=== PATIENT | female | born 1950 | race Caucasian/White ===

== ENCOUNTER 2018-06-30 21:14 | Inpatient (IN) | payer MEDICAID ==
[~2018-06-30] VITALS: Ht 157.5 cm; Wt 77.4 kg
[~2018-06-30 21:14] MED LIST: ASPI-831 PO; LISI-524 PO; METF-849 PO
[2018-06-30] MEDS ORDERED: ACETAMINOPHEN 325 MG TAB PO STA (21:26)
[2018-06-30] MEDS ORDERED: KETOROLAC 15 MG INJ IV STA (21:26)
[2018-06-30] MEDS ORDERED: SODIUM CHLORIDE 0.9% 1L BAG IV* STA (21:26)
[2018-06-30] MEDS ORDERED: VANCOMYCIN 1 GM (PMX) 250 ML IVPB ONE (21:30)
[2018-06-30] MEDS: CEFEPIME 2GM/50 ML (PMX) 50 ML IVPB STA ×2 (21:44→21:46)
[2018-06-30] MEDS ORDERED: ONDANSETRON 4 MG INJ IV PRN (23:00)
[2018-06-30] MEDS ORDERED: ACETAMINOPHEN 325 MG TAB PO PRN (23:00)
--- NOTE | 2018-06-30 23:32 | HP ---
Date/Time of Note Date/Time of Note DATE: 06/30/18 TIME: 23:32 Assessment/Plan VTE Prophylaxis Pharmacological prophylaxis: heparin Lines/Catheters IV Catheter Type (from Nrsg): Saline Lock Assessment/Plan Assessment/Plan 1. Sepsis: Secondary to UTI and possibly early pneumonia -Broad-spectrum IV antibiotic -Influenza negative. Follow-up culture results -Cautious with IV fluids given possible pulmonary edema on chest x-ray 2. Hypertension: Continue meds. Adjust as needed 3. Diabetes: Insulin while in-house 4. Right shoulder pain: Patient mentioned about arthritis. She has full range of motion and there is no obvious deformity -Pain management for now -Consider imaging per clinical course low suspicion for nerve impingement Result Diagram: 06/30/18213406/30/182134 Results 24hrs Laboratory Tests Test 06/30/18 21:35 06/30/18 21:41 06/30/18 22:27 White Blood Count 10.0 # Red Blood Count 3.37 L Hemoglobin 10.3 L Hematocrit 30.6 L Mean Corpuscular Volume 90.8 Mean Corpuscular Hemoglobin 30.6 Mean Corpuscular Hemoglobin Concent 33.7 Red Cell Distribution Width 12.7 Platelet Count 212 Mean Platelet Volume 10.5 H Immature Granulocytes % 0.500 H Neutrophils % 89.2 H Lymphocytes % 5.7 L Monocytes % 4.1 Eosinophils % 0.1 Basophils % 0.4 Nucleated Red Blood Cells % 0.0 Immature Granulocytes # 0.050 H Neutrophils # 8.9 H Lymphocytes # 0.6 L Monocytes # 0.4 Eosinophils # 0.0 Basophils # 0.0 Nucleated Red Blood Cells # 0.0 Prothrombin Time 12.9 Prothrombin Time Ratio 1.0 INR International Normalized Ratio 0.96 Activated Partial Thromboplast Time 34.0 Sodium Level 136 Potassium Level 3.8 Chloride Level 101 Carbon Dioxide Level 24 Anion Gap 11 Blood Urea Nitrogen 15 Creatinine 0.62 Est Glomerular Filtrat Rate mL/min > 60 Glucose Level 189 Calcium Level 9.0 Total Bilirubin 0.4 Direct Bilirubin 0.00 Indirect Bilirubin 0.4 Aspartate Amino Transf (AST/SGOT) 19 Alanine Aminotransferase (ALT/SGPT) 17 Alkaline Phosphatase 127 H Troponin I < 0.012 Total Protein 7.7 Albumin 3.9 Globulin 3.80 H Albumin/Globulin Ratio 1.02 POC Venous Lactate 1.4 Urine Color YELLOW Urine Clarity CLOUDY A Urine pH 5.0 Urine Specific [place] 1.015 Urine Ketones NEGATIVE Urine Nitrite NEGATIVE Urine Bilirubin NEGATIVE Urine Urobilinogen NEGATIVE Urine Leukocyte Esterase 3+ H Urine Microscopic RBC 6 H Urine Microscopic WBC > 182 H Urine Squamous Epithelial Cells FEW Urine Transitional Epithelial Cells FEW A Urine Bacteria FEW A Urine Hemoglobin 2+ H Urine Glucose NEGATIVE Urine Total Protein 2+ H HPI/ROS Admit Date/Time Admit Date/Time Hx of Present Illness This is a 68-year-old female with a history of hypertension and type 2 diabetes who presented to ER complaining of fever/chills and right shoulder pain. Reported minimal cough and shortness of breath. Denied chest pain. Reported urinary symptoms. No diarrhea. Patient is more bothered by fever and chills. Patient was just discharged from here 2 weeks ago after she initially presented with orthopnea and PND. At that time she was ruled out for ACS and stress test was also negative. When presented to ER, patient was febrile with a temperature of 105. UA consistent with UTI. Chest x-ray suspicious for early pneumonia. Influenza negative PMH/Family/Social Past Medical History Medical History: other (See HPI) Medications Current Medications Ondansetron HCl (Zofran Inj) 4 mg BRIDGE ORDER PRN IV NAUSEA/VOMITING; Start 06/30/18 at 23:00; Stop 07/01/18 at 22:59 Acetaminophen (Tylenol Tab) 650 mg ER BRIDGE PRN PO .MILD PAIN 1-3 OR TEMP; Start 06/30/18 at 23:00; Stop 07/01/18 at 22:59 Coded Allergies: No Known Allergy (Unverified , 07/01/18) Past Surgical History Past Surgical Hx: other (See HPI) Family History Significant Family History: no pertinent family hx Social History Alcohol Use: none Smoking Status: Never smoker Drug Use: none Exam/Review of Systems Vital Signs Vitals Vital Signs Date Temp Pulse Resp B/P (MAP) Pulse Ox O2 O2 Flow FiO2 Time Delivery Rate 06/30/18 103.0 21:43 06/30/18 20 154/57 100 Room Air 21:25 (89) 06/30/18 90 21:18 Exam Constitutional: other (Patient lying in bed. She looks uncomfortable because of fever and chills. She is answering questions appropriately) Head: normocephalic, atraumatic Eyes: EOMI, PERRL Respiratory: other (Decreased breath sounds at the bases bilaterally) Cardiovascular: other (Tachycardic with regular rhythm) Gastrointestinal: soft Musculoskeletal: other (Pain was elicited on palpation the right shoulder area. No obvious deformity. She has full range of motion) Extremities: normal pulses SURESH HEADLEY MD Jun 30, 2018 23:32
--- NOTE | 2018-06-30 23:33 | ERD ---
ER Documentation Chief Complaint Chief Complaint FEVER AND INTERMITTENT COUGH FOR A FEW DAYS AND GEN BODY PAIN AND WEAK HPI This a 68-year-old female who presents the emergency room with approximately 2-3 days of fever cough congestion and back pain. Patient is noted to have a significant fever at triage. She denies any headache or rash or neck stiffness. Patient's cough is slightly productive. No dysuria urgency or frequency. The patient does describe generalized body pain and weakness. ROS All systems reviewed and are negative except as per history of present illness. Medications Home Meds Active Scripts Aspirin (Aspirin) 81 Mg Chew, 81 MG PO DAILY for 30 Days, TAB.CHEW 2 Refills Prov:KARANDELMARATITO M. 06/14/15 Metformin* (Glucophage*) 500 Mg Tab, 500 MG PO WITH BREAKFAST, #30 TAB 2 Refills Prov:KARAN,DELMARATITO M. 06/14/15 Lisinopril* (Zestril*) 10 Mg Tab, 10 MG PO DAILY for 30 Days, TAB 2 Refills Prov:KARANVIRGIEO M. 06/14/15 Allergies Allergies: Coded Allergies: No Known Allergy (Unverified , 06/12/15) PMhx/Soc History of Surgery: No Anesthesia Reaction: No Hx Neurological Disorder: No Hx Respiratory Disorders: No Hx Cardiac Disorders: Yes (HYPERTENSION) Hx Psychiatric Problems: No Hx Miscellaneous Medical Probl: No Hx Alcohol Use: No Hx Substance Use: No Hx Tobacco Use: No Smoking Status: Never smoker FmHx Family History: No diabetes Physical Exam Vitals Vital Signs Date Temp Pulse Resp B/P (MAP) Pulse Ox O2 O2 Flow FiO2 Time Delivery Rate 06/30/18 103.0 21:43 06/30/18 103.0 20 154/57 100 Room Air 21:25 (89) 06/30/18 105.1 90 22 164/92 94 21:18 (116) Physical Exam General: Well developed, well nourished, no acute distress Head: Normocephalic, atraumatic. Eyes: Pupils equally reactive, EOM intact ENT: Moist mucous membranes Neck: Supple, no lymphadenopathy Respiratory: Rhonchi at the bases bilaterally, no respiratory distress Cardiovascular: Tachycardia, no murmurs, rubs, or gallops Abdominal: Soft, non-tender, non-distended, no peritoneal signs : Deferred MSK: No edema, no unilateral swelling, 5/5 strength Neurologic: Alert and oriented, moving all extremities, normal speech, no focal weakness, no cerebellar signs Skin: No rash Psych: Normal mood Result Diagram: 06/30/18213406/30/182134 Results 24 hrs Laboratory Tests Test 06/30/18 21:35 06/30/18 21:41 06/30/18 22:27 White Blood Count 10.0 10^3/ul Red Blood Count 3.37 10^6/ul Hemoglobin 10.3 g/dl Hematocrit 30.6 % Mean Corpuscular Volume 90.8 fl Mean Corpuscular Hemoglobin 30.6 pg Mean Corpuscular 33.7 g/dl Hemoglobin Concent Red Cell Distribution Width 12.7 % Platelet Count 212 10^3/UL Mean Platelet Volume 10.5 fl Immature Granulocytes % 0.500 % Neutrophils % 89.2 % Lymphocytes % 5.7 % Monocytes % 4.1 % Eosinophils % 0.1 % Basophils % 0.4 % Nucleated Red Blood Cells % 0.0 /100WBC Immature Granulocytes # 0.050 10^3/ul Neutrophils # 8.9 10^3/ul Lymphocytes # 0.6 10^3/ul Monocytes # 0.4 10^3/ul Eosinophils # 0.0 10^3/ul Basophils # 0.0 10^3/ul Nucleated Red Blood Cells # 0.0 10^3/ul Prothrombin Time 12.9 Sec Prothrombin Time Ratio 1.0 INR International 0.96 Normalized Ratio Activated Partial Thromboplast 34.0 Sec Time Sodium Level 136 mmol/L Potassium Level 3.8 mmol/L Chloride Level 101 mmol/L Carbon Dioxide Level 24 mmol/L Anion Gap 11 Blood Urea Nitrogen 15 mg/dl Creatinine 0.62 mg/dl Est Glomerular Filtrat > 60 mL/min Rate mL/min Glucose Level 189 mg/dl Calcium Level 9.0 mg/dl Total Bilirubin 0.4 mg/dl Direct Bilirubin 0.00 mg/dl Indirect Bilirubin 0.4 mg/dl Aspartate Amino 19 IU/L Transf (AST/SGOT) Alanine 17 IU/L Aminotransferase (ALT/SGPT) Alkaline Phosphatase 127 IU/L Troponin I < 0.012 ng/ml Total Protein 7.7 g/dl Albumin 3.9 g/dl Globulin 3.80 g/dl Albumin/Globulin Ratio 1.02 POC Venous Lactate 1.4 mmol/L Urine Color YELLOW Urine Clarity CLOUDY Urine pH 5.0 Urine Specific [place] 1.015 Urine Ketones NEGATIVE mg/dL Urine Nitrite NEGATIVE mg/dL Urine Bilirubin NEGATIVE mg/dL Urine Urobilinogen NEGATIVE mg/dL Urine Leukocyte Esterase 3+ Ana/ul Urine Microscopic RBC 6 /HPF Urine Microscopic WBC > 182 /HPF Urine Squamous Epithelial Cells FEW /HPF Urine Transitional FEW /HPF Epithelial Cells Urine Bacteria FEW /HPF Urine Hemoglobin 2+ mg/dL Urine Glucose NEGATIVE mg/dL Urine Total Protein 2+ mg/dl Current Medications Medications Dose Sig/Viviana Start Time Status Last (Trade) Ordered Route PRN Stop Time Admin Dose Reason Admin Sodium 2,160 ml BOLUS OVER 2 06/30/18 DC 06/30/18 Chloride HOURS STAT 21: 21:44 (NS) IV* 06/30/18 21:28 650 mg ONCE STAT 06/30/18 DC 06/30/18 Acetaminophen PO 21:26 21:43 (Tylenol 06/30/18 21:28 Tab) Cefepime HCl 50 ml @ ONCE STAT 06/30/18 DC 06/30/18 100 mls/hr IVPB 21:26 21:46 06/30/18 21:55 Vancomycin 250 ml @ ONCE ONCE 06/30/18 DC 06/30/18 HCl 125 mls/hr IVPB 21:30 22:11 06/30/18 23:29 Ketorolac 15 mg ONCE STAT 06/30/18 DC 06/30/18 Tromethamine IV 21:26 21:42 (Toradol) 06/30/18 21:28 Ondansetron 4 mg BRIDGE ORDER 06/30/18 HCl (Zofran PRN IV 23:00 Inj) NAUSEA/VOMITI 07/01/18 22:59 NG 650 mg ER BRIDGE 06/30/18 Acetaminophen PRN PO 23:00 (Tylenol .MILD PAIN 07/01/18 22:59 Tab) 1-3 OR TEMP Procedures/MDM EKG, MONITORS, & DIAGNOSTIC IMAGING: EKG: I reviewed and interpreted a 12-lead EKG. Rhythm: Normal sinus rhythm ST Changes: No contiguous ST segment elevations T waves: No contiguous T wave inversions Impression: No evidence of acute cardiac ischemia Chest x-ray: I reviewed and interpreted a 1 view of the chest Mediastinum: No enlargement Cardiac silhouette: No cardiomegaly Airspace: Possible right-sided infiltrate Bones: No evidence of fracture LAB INTERPRETATION: I reviewed the laboratory testing and it shows normal lactic acid, normal white count with left shift, UTI, normal lactic acid, negative troponin MEDICAL DECISION MAKING: Patient has Sirs criteria with significant fever, cough congestion concerning for community acquired pneumonia. Patient is sepsis screening and broad-spe ctrum antibiotics. Given patient's age inpatient hospitalization is most likely appropriate. ER COURSE: * Laboratory testing and diagnostic imaging confirmed possible community acquired pneumonia versus urinary tract infection and potentially pyelonephritis. * 30/kg bolus of saline provided. Antipyretics provided. Blood cultures prior to broad-spectrum antibiotics. * Patient's lactic acid and hemodynamics are reassuring. No indication for central line or pressors. CONSULTATION: None DISPOSITION PLAN: Accepting care team and consultations: I discussed the current laboratory data, diagnostic imaging and emergency care provided. Admitting team: Dr. Winter Admitting team indication: Insurance directed Sepsis Documentation: Patient's infectious symptoms have not stabilized and the patient is at risk of rapid decompensation. The patient will be admitted for careful hydration, antibiotic therapy, and infectious source control. SEVERE SEPSIS CRITERIA: Infectious source: Community-acquired pneumonia, urinary tract infection End organ damage indicated by: No evidence at this time SEPSIS MANAGEMENT Time of recognition of sepsis: Upon MD assessment. Time of recognition of severe sepsis: No severe sepsis at this time. Time of recognition of septic shock: No septic shock at this time. 3 HOUR BUNDLE Blood cultures x 2 before broad-spectrum antibiotics: Yes 30 ml/kg NS bolus completed Initial lactate less than 2 Repeat lactate less than 2 SEPTIC SHOCK ASSESSMENT: No lactic acid > 4.0 No persistent hypotension (SBP < 90 or 40 mmHg drop, MAP < 65) despite 30 mL/kg IV fluid bolus VOLUME REASSESSMENT FOR SEPTIC SHOCK: The patient does not meet criteria for septic shock in the emergency department at this time PERSISTENT HYPOTENSION TREATMENT: Comfort care no Central line not Required Vasopressor started not required I considered further perfusion assessment with CVP measurement, SCVO2, bedside ultrasound volume assessment, passive leg raise, trial of further fluid bolus. And proceeded with 30 ml/kg fluid bolus of NSS, broad spectrum antibiotics, and admission. CRITICAL CARE Critical care time 35 minutes Emergent fluid management while maintaining close respiratory support. Provision of immediate and broad-spectrum antibiotic therapy. Simultaneous asse ssment for possible sources in order to direct targeted therapy. Consideration for invasive and chemical support to prevent cardiopulmonary collapse. Critical care time is independent of procedures performed. Departure Diagnosis: Primary Impression: Community acquired pneumonia Laterality: right Lung location: lower lobe of lung Qualified Codes: J18.1 - Lobar pneumonia, unspecified organism Additional Impressions: Acute pyelonephritis Sepsis Sepsis type: sepsis due to unspecified organism Qualified Codes: A41.9 - Sepsis, unspecified organism Condition: Stable JUAN MIGUEL CASTANON MD Jun 30, 2018 23:33
[2018-07-01] VITALS (11 sets, daily range): BP systolic 105–139; BP diastolic 42–73; PULSE 63–85; RESP 18–20; Ht 157.5 cm; Wt 77.4 kg
[2018-07-01] MEDS ORDERED: ACET-141 PO (02:42)
[2018-07-01] MEDS ORDERED: ALBUTEROL/IPRATROPIUM (NEB) 3 ML AMP HHN PRN (05:00)
[2018-07-01] MEDS ORDERED: ONDANSETRON 4 MG INJ IV PRN (05:00)
[2018-07-01] MEDS ORDERED: NACL 0.9% 3 ML SYG IV SCH (05:00)
[2018-07-01] MEDS ORDERED: metFORMIN 500 MG TAB PO SCH (07:55)
[2018-07-01] MEDS: ASPIRIN 81 MG TAB PO SCH (08:09)
[2018-07-01] MEDS: LISINOPRIL 10 MG TAB PO SCH (08:10)
[2018-07-01] MEDS: ENOXAPARIN 40 MG/0.4 ML SYG SC SCH (08:19)
[2018-07-01] MEDS ORDERED: LEVOFLOXACIN 500MG/D5W (PMX) 100 ML IVPB SCH (09:00)
[2018-07-01] MEDS ORDERED: VANCOMYCIN IV PER PHARMACY XX SCH (10:00)
[2018-07-01] MEDS: SOD CHLORIDE 0.9% 1,000 ML IV SCH ×2 (11:03→17:31)
[2018-07-01] MEDS: PIPER-TAZO 3.375 GM IV (PMX) 100 ML IVPB SCH ×2 (11:03→17:30)
--- NOTE | 2018-07-01 11:22 | PN ---
Date/Time of Note Date/Time of Note DATE: 07/01/18 TIME: 11:14 Assessment/Plan VTE Prophylaxis Risk score (from Ns)>0 risk: 3 SCD applied (from Ns): No SCD contraindicated: other Pharmacological prophylaxis: LMWH Lines/Catheters IV [facility]ter [facility]from [facility] Saline Lock Assessment/Plan Hospital Course S: Patient had no fevers overnight. Still having some weakness symptoms overall. Appears to be tolerating diet. O: VS - see below PE: Constitutional: lying in bed, family member bedside, no acute distress Head: normocephalic, atraumatic Eyes: EOMI, PERRL Respiratory: other (Decreased breath sounds at the bases bilaterally) Cardiovascular: other (Tachycardic with regular rhythm) Gastrointestinal: soft Musculoskeletal: still having some mild right shoulder pain Extremities: normal pulses Assessment/Plan: 68-year-old female who presents with: 1. Sepsis: Secondary to UTI and possibly early pneumonia. As well, 2 out of 2 blood culture bottles have gram-negative berto growth-Influenza negative. -Continue broad-spectrum IV antibiotics and get ID consult - Follow-up culture results -Cautious with IV fluids given possible pulmonary edema on chest x-ray 2. Hypertension: Blood pressure stable - continue meds. Adjust as needed 3. Diabetes: Sugars are stable -Follow-up A1c, continue sliding scale insulin while in-house -Holding home metformin for now 4. Right shoulder pain: Patient mentioned about arthritis. She has full range of motion and there is no obvious deformity -Pain management for now, but will go ahead and check x-ray -Get PT and OT eval's Result Diagram: 07/01/18 0724 07/01/18 0724 Results 24hrs Laboratory Tests Test 06/30/18 21:35 06/30/18 21:41 06/30/18 22:27 06/30/18 23:31 White Blood Count 10.0 # Red Blood Count 3.37 L Hemoglobin 10.3 L Hematocrit 30.6 L Mean Corpuscular 90.8 Volume Mean Corpuscular 30.6 Hemoglobin Mean Corpuscular 33.7 Hemoglobin Concent Red Cell 12.7 Distribution Width Platelet Count 212 Mean Platelet Volume 10.5 H Immature 0.500 H Granulocytes % Neutrophils % 89.2 H Lymphocytes % 5.7 L Monocytes % 4.1 Eosinophils % 0.1 Basophils % 0.4 Nucleated Red Blood 0.0 Cells % Immature 0.050 H Granulocytes # Neutrophils # 8.9 H Lymphocytes # 0.6 L Monocytes # 0.4 Eosinophils # 0.0 Basophils # 0.0 Nucleated Red Blood 0.0 Cells # Prothrombin Time 12.9 Prothrombin Time 1.0 Ratio INR International 0.96 Normalized Ratio Activated 34.0 Partial Thromboplast Time Sodium Level 136 Potassium Level 3.8 Chloride Level 101 Carbon Dioxide Level 24 Anion Gap 11 Blood Urea Nitrogen 15 Creatinine 0.62 Est Glomerular > 60 Filtrat Rate mL/min Glucose Level 189 Calcium Level 9.0 Total Bilirubin 0.4 Direct Bilirubin 0.00 Indirect Bilirubin 0.4 Aspartate Amino 19 Transf (AST/SGOT) Alanine 17 Aminotransferase (AL T/SGPT) Alkaline Phosphatase 127 H Troponin I < 0.012 Total Protein 7.7 Albumin 3.9 Globulin 3.80 H Albumin/Globulin 1.02 Ratio POC Venous Lactate 1.4 Urine Color YELLOW Urine Clarity CLOUDY A Urine pH 5.0 Urine Specific 1.015 [place] Urine Ketones NEGATIVE Urine Nitrite NEGATIVE Urine Bilirubin NEGATIVE Urine Urobilinogen NEGATIVE Urine Leukocyte 3+ H Esterase Urine Microscopic 6 H RBC Urine Microscopic > 182 H WBC Urine Squamous FEW Epithelial Cells Urine Transitional FEW A Epithelial Cells Urine Bacteria FEW A Urine Hemoglobin 2+ H Urine Glucose NEGATIVE Urine Total Protein 2+ H Lactic Acid Level 0.8 Test 07/01/18 01:41 07/01/18 07:24 07/01/18 08:05 Lactic Acid Level 0.8 White Blood Count 10.2 Red Blood Count 3.54 L Hemoglobin 10.5 L Hematocrit 33.1 L Mean Corpuscular 93.5 Volume Mean Corpuscular 29.7 Hemoglobin Mean Corpuscular 31.7 L Hemoglobin Concent Red Cell 13.0 Distribution Width Platelet Count 202 Mean Platelet Volume 10.8 H Immature 0.600 H Granulocytes % Neutrophils % 85.9 H Lymphocytes % 8.4 L Monocytes % 4.5 Eosinophils % 0.2 Basophils % 0.4 Nucleated Red Blood 0.0 Cells % Immature 0.060 H Granulocytes # Neutrophils # 8.7 H Lymphocytes # 0.9 Monocytes # 0.5 Eosinophils # 0.0 Basophils # 0.0 Nucleated Red Blood 0.0 Cells # Sodium Level 139 Potassium Level 3.8 Chloride Level 107 Carbon Dioxide Level 22 Anion Gap 10 Blood Urea Nitrogen 15 Creatinine 0.59 Est Glomerular > 60 Filtrat Rate mL/min Glucose Level 135 # Calcium Level 8.7 Total Bilirubin 0.4 Direct Bilirubin 0.00 Indirect Bilirubin 0.4 Aspartate Amino 21 Transf (AST/SGOT) Alanine 15 Aminotransferase (AL T/SGPT) Alkaline Phosphatase 124 H Total Protein 7.4 Albumin 3.7 Globulin 3.70 H Albumin/Globulin 1.00 Ratio Bedside Glucose 122 Exam/Review of Systems Exam Vitals Vital Signs Date Temp Pulse Resp B/P (MAP) Pulse Ox O2 O2 Flow FiO2 Time Delivery Rate 07/01/18 70 09:26 07/01/18 98.8 20 139/65 95 07:46 (89) 07/01/18 Room Air 04:23 Intake and Output 06/30/18 06/30/18 07/01/18 1414:59 22:59 06:59 IntakeIntake Total 2410 ml BalanceBalance 2410 ml Results Results 24hrs Laboratory Tests Test 06/30/18 21:35 06/30/18 21:41 06/30/18 22:27 06/30/18 23:31 White Blood Count 10.0 # Red Blood Count 3.37 L Hemoglobin 10.3 L Hematocrit 30.6 L Mean Corpuscular 90.8 Volume Mean Corpuscular 30.6 Hemoglobin Mean Corpuscular 33.7 Hemoglobin Concent Red Cell 12.7 Distribution Width Platelet Count 212 Mean Platelet Volume 10.5 H Immature 0.500 H Granulocytes % Neutrophils % 89.2 H Lymphocytes % 5.7 L Monocytes % 4.1 Eosinophils % 0.1 Basophils % 0.4 Nucleated Red Blood 0.0 Cells % Immature 0.050 H Granulocytes # Neutrophils # 8.9 H Lymphocytes # 0.6 L Monocytes # 0.4 Eosinophils # 0.0 Basophils # 0.0 Nucleated Red Blood 0.0 Cells # Prothrombin Time 12.9 Prothrombin Time 1.0 Ratio INR International 0.96 Normalized Ratio Activated 34.0 Partial Thromboplast Time Sodium Level 136 Potassium Level 3.8 Chloride Level 101 Carbon Dioxide Level 24 Anion Gap 11 Blood Urea Nitrogen 15 Creatinine 0.62 Est Glomerular > 60 Filtrat Rate mL/min Glucose Level 189 Calcium Level 9.0 Total Bilirubin 0.4 Direct Bilirubin 0.00 Indirect Bilirubin 0.4 Aspartate Amino 19 Transf (AST/SGOT) Alanine 17 Aminotransferase (AL T/SGPT) Alkaline Phosphatase 127 H Troponin I < 0.012 Total Protein 7.7 Albumin 3.9 Globulin 3.80 H Albumin/Globulin 1.02 Ratio POC Venous Lactate 1.4 Urine Color YELLOW Urine Clarity CLOUDY A Urine pH 5.0 Urine Specific 1.015 [place] Urine Ketones NEGATIVE Urine Nitrite NEGATIVE Urine Bilirubin NEGATIVE Urine Urobilinogen NEGATIVE Urine Leukocyte 3+ H Esterase Urine Microscopic 6 H RBC Urine Microscopic > 182 H WBC Urine Squamous FEW Epithelial Cells Urine Transitional FEW A Epithelial Cells Urine Bacteria FEW A Urine Hemoglobin 2+ H Urine Glucose NEGATIVE Urine Total Protein 2+ H Lactic Acid Level 0.8 Test 07/01/18 01:41 07/01/18 07:24 07/01/18 08:05 Lactic Acid Level 0.8 White Blood Count 10.2 Red Blood Count 3.54 L Hemoglobin 10.5 L Hematocrit 33.1 L Mean Corpuscular 93.5 Volume Mean Corpuscular 29.7 Hemoglobin Mean Corpuscular 31.7 L Hemoglobin Concent Red Cell 13.0 Distribution Width Platelet Count 202 Mean Platelet Volume 10.8 H Immature 0.600 H Granulocytes % Neutrophils % 85.9 H Lymphocytes % 8.4 L Monocytes % 4.5 Eosinophils % 0.2 Basophils % 0.4 Nucleated Red Blood 0.0 Cells % Immature 0.060 H Granulocytes # Neutrophils # 8.7 H Lymphocytes # 0.9 Monocytes # 0.5 Eosinophils # 0.0 Basophils # 0.0 Nucleated Red Blood 0.0 Cells # Sodium Level 139 Potassium Level 3.8 Chloride Level 107 Carbon Dioxide Level 22 Anion Gap 10 Blood Urea Nitrogen 15 Creatinine 0.59 Est Glomerular > 60 Filtrat Rate mL/min Glucose Level 135 # Calcium Level 8.7 Total Bilirubin 0.4 Direct Bilirubin 0.00 Indirect Bilirubin 0.4 Aspartate Amino 21 Transf (AST/SGOT) Alanine 15 Aminotransferase (AL T/SGPT) Alkaline Phosphatase 124 H Total Protein 7.4 Albumin 3.7 Globulin 3.70 H Albumin/Globulin 1.00 Ratio Bedside Glucose 122 Medications Medication Current Medications Ondansetron HCl (Zofran Inj) 4 mg BRIDGE ORDER PRN IV NAUSEA/VOMITING; Start 06/30/18 at 23:00; Stop 07/01/18 at 22:59 Acetaminophen (Tylenol Tab) 650 mg ER BRIDGE PRN PO .MILD PAIN 1-3 OR TEMP; Start 06/30/18 at 23:00; Stop 07/01/18 at 22:59 IV Flush (NS 3 ml) 3 ml PER PROTOCOL IV ; Start 07/01/18 at 05:00 Ondansetron HCl (Zofran Inj) 4 mg Q6H PRN IV NAUSEA/VOMITING; Start 07/01/18 at 05:00 Acetaminophen (Tylenol Tab) 650 mg Q6H PRN PO .PAIN 1-3 OR TEMP; Start 07/01/18 at 05:00 Enoxaparin Sodium (Lovenox) 40 mg DAILY SC Last administered on 07/01/18at 08:19; Admin Dose 40 MG; Start 07/01/18 at 09:00 Albuterol/ Ipratropium (Duoneb) 3 ml Q2H RESP THERAPY PRN HHN SHORTNESS OF BREATH; Start 07/01/18 at 05:00 Aspirin (Aspirin) 81 mg DAILY PO Last administered on 07/01/18at 08:09; Admin Dose 81 MG; Start 07/01/18 at 09:00 Lisinopril (Zestril) 10 mg DAILY PO Last administered on 07/01/18at 08:10; Admin Dose 10 MG; Start 07/01/18 at 09:00 Piperacillin Sod/ Tazobactam Sod 100 ml @ 200 mls/hr Q6 IVPB Last administered on 07/01/18at 11:03; Admin Dose 200 MLS/HR; Start 07/01/18 at 11:00 Vancomycin HCl (Vanco Iv Per Pharmacy) VANCOMYCIN PER PHARMACY PER PROTOCOL XX ; Start 07/01/18 at 10:00 Sodium Chloride 1,000 ml @ 100 mls/hr Q10H IV Last administered on 07/01/18at 11:03; Admin Dose 100 MLS/HR; Start 07/01/18 at 11:00; Stop 07/02/18 at 10:59 Miscellaneous Information (* Miscellaneous Pharmacy Order) Discontinue current oral sulfonylur... ONCE ONCE XX ; Start 07/01/18 at 11:30; Stop 07/01/18 at 11:31; Status UNV Diagnostic Test (Pha) (Accu-Chek) 1 XX ; Start 07/02/18 at 02:00; Status UNV Miscellaneous Information (* Miscellaneous Pharmacy Order) HYPOGLYCEMIA PROTOCOL w... ONCE ONCE XX ; Start 07/01/18 at 11:30; Stop 07/01/18 at 11:31; Status UNV Insulin Aspart (Novolog Insulin Pen) NOVOLOG *MILD* ALGORITHM WITH MEALS BEDTIME SC ; Start 07/01/18 at 11:50; Status UNV Miscellaneous Information (* Miscellaneous Pharmacy Order) Discontinue all previ... ONCE ONCE XX ; Start 07/01/18 at 11:30; Stop 07/01/18 at 11:31; Status UNV Vancomycin HCl 100 ml @ 100 mls/hr Q12H IVPB ; Start 07/01/18 at 13:00 CURT LUGO Jul 01, 2018 11:22
[2018-07-01] MEDS ORDERED: DEXTROSE 50% 50 ML SYRINGE IV PRN ×2 (11:30)
[2018-07-01] MEDS ORDERED: GLUCOSE GEL 15 GRAM TUBE PO PRN ×2 (11:30)
[2018-07-01] MEDS ORDERED: GLUCAGON 1 MG INJ IM PRN (11:30)
[2018-07-01] MEDS ORDERED: GLUCOSE GEL 15 GRAM TUBE BUCCAL PRN (11:30)
[2018-07-01] MEDS: INSULIN ASPART [NOVOLOG] 3 ML PEN SC SCH ×3 (12:32→21:00)
[2018-07-01] MEDS: VANCOMYCIN 500 MG (PMX) 100 ML IVPB SCH (13:15)
[2018-07-01] MEDS: ACETAMINOPHEN 325 MG TAB PO PRN ×2 (13:45→22:58)
--- NOTE | 2018-07-01 14:20 | CONS ---
DATE OF ADMISSION: 06/30/2018 DATE OF CONSULTATION: 06/30/2018 TYPE OF CONSULTATION: Infectious disease. REASON FOR CONSULTATION: Antibiotic management. HISTORY OF PRESENT ILLNESS: Sahra Fair is a 68-year-old female who was admitted on 06/30/2018 wit h fever, intermittent cough and generalized body pain and weakness. She is 68 years old. As noted, she comes in with fever, cough, congestion and back pain. Cough is slightly productive. PAST MEDICAL HISTORY: Positive for hypertension. FAMILY HISTORY: Noncontributory. SOCIAL HISTORY: She does not smoke, drink or abuse drugs. ALLERGIES: NONE TO PENICILLIN, SULFA OR FOODS. MEDICATIONS: Per chart. REVIEW OF SYSTEMS: Noncontributory. PHYSICAL EXAMINATION: GENERAL: The patient is a well-developed, well-nourished female in no acute distress. VITAL SIGNS: T-max of 105.1. Her blood pressure was up to 164/92. SKIN: Without generalized rash. HEENT: Within normal limits. NECK: Supple. LYMPH NODES: None palpable. CHEST: Scattered rhonchi at the bases. HEART: Without murmur or gallop. She is tachycardic. ABDOMEN: Soft, nontender without organosplenomegaly or masses. EXTREMITIES: Without cyanosis, clubbing or edema. RECTAL AND GENITAL: Deferred. NEUROLOGIC: No focal neurological abnormality. LABORATORY DATA: Her white count is 10.0, H and H of 13.3 and 38.6, platelet count 212,000. BUN and creatinine is 15/0.62. She was placed on vancomycin and cefepime. DIAGNOSTIC DATA: Chest x-ray showed possible right-sided infiltrate, no evidence of fracture. MICROBIOLOGY: Her urine showed 3+ leukocyte esterase, greater than 182 white cells per high powered field, consistent with urinary tract infection. The patient was started on vancomycin and Zosyn. Bl ood cultures are positive for gram-negative rods, so she has UTI with sepsis. IMPRESSION AND PLAN: For the time being, we will continue her on both of these medications or antibi otics but we may stop her vancomycin shortly and continue with cefepime or with Zosyn. Currently, as I can see, she is on Zosyn. We will continue her on current therapy. Dictated By: ANUJ WEI MD, JD/ANDREAS Conf#: [id number] [facility]#: [id number] CC: CURT LUGO; SURESH HEADLEY MD;*End*
[2018-07-01] MEDS ORDERED: METHYLPREDNISOLONE 40 MG INJ IV ONE (22:30)
[2018-07-01] MEDS ORDERED: DIPHENHYDRAMINE 50 MG INJ IV ONE (22:30)
[2018-07-02] VITALS (12 sets, daily range): BP systolic 121–191; BP diastolic 58–81; PULSE 52–77; RESP 17–20
[2018-07-02] MEDS: PIPER-TAZO 3.375 GM IV (PMX) 100 ML IVPB SCH ×4 (00:59→17:17)
[2018-07-02] MEDS: ACCU-CHEK XX SCH (02:00)
[2018-07-02] MEDS: VANCOMYCIN 500 MG (PMX) 100 ML IVPB SCH ×2 (02:45→13:17)
[2018-07-02] MEDS: LISINOPRIL 10 MG TAB PO SCH (08:00)
[2018-07-02] MEDS: ASPIRIN 81 MG TAB PO SCH (08:00)
[2018-07-02] MEDS: ENOXAPARIN 40 MG/0.4 ML SYG SC SCH (08:03)
[2018-07-02] MEDS: INSULIN ASPART [NOVOLOG] 3 ML PEN SC SCH ×4 (08:03→21:08)
--- NOTE | 2018-07-02 11:51 | PN ---
Date/Time of Note Date/Time of Note DATE: 07/02/18 TIME: 11:48 Assessment/Plan VTE Prophylaxis Risk score (from Nsg)>0 risk: 3 SCD applied (from Ns): No SCD contraindicated: other Pharmacological prophylaxis: LMWH Lines/Catheters IV Catheter Type (from Nrs): Peripheral IV Assessment/Plan Hospital Course S: Patient had no fevers overnight. Did complain some some swelling underneath her eyes, no rash, tolerating diet, seen by ID team yesterday. Still waiting for final culture results. O: VS - see below PE: Constitutional: lying in bed, no acute distress Head: normocephalic, atraumatic Eyes: EOMI, PERRL Respiratory: other (less decreased breath sounds at the bases bilaterally) Cardiovascular: S1, S2 heard Gastrointestinal: soft Musculoskeletal: still having some mild right shoulder pain Extremities: normal pulses Right shoulder x-ray: IMPRESSION: 1. No evidence for bone destructive change. 2. No acute fracture or dislocation is seen. 3. Supraspinatus insertional calcific tendonitis versus old post-traumatic dystrophic calcification/ossification. Assessment/Plan: 68-year-old female who presents with: 1. Sepsis: Secondary to UTI and possibly early pneumonia. As well, 2 out of 2 blood culture bottles have gram-negative berto growth. -Continue broad-spectrum IV antibiotics follow-up recommendations from ID consult - Follow-up culture results -Cautious with IV fluids given possible pulmonary edema on chest x-ray 2. Hypertension: Blood pressure stable - continue meds. Adjust as needed 3. Diabetes: Sugars were slightly elevated earlier today, likely secondary to IV steroid x1 dose patient got yesterday. A1c was 6.5 -Monitor, continue sliding scale insulin while in-house -Holding home metformin for now 4. Right shoulder pain: Patient mentioned about arthritis. She has full range of motion and there is no obvious deformity. X-ray results noted -Pain management for now, monitor - PT and OT Result Diagram: 07/02/18 0543 07/02/18 0543 Results 24hrs Laboratory Tests Test 07/01/18 12:19 07/01/18 17:29 07/01/18 21:36 07/02/18 05:43 Bedside Glucose 166 117 178 White Blood Count 6.8 # Red Blood Count 3.14 L Hemoglobin 9.5 L Hematocrit 28.9 L Mean Corpuscular 92.0 Volume Mean Corpuscular 30.3 Hemoglobin Mean Corpuscular 32.9 Hemoglobin Concent Red Cell 12.8 Distribution Width Platelet Count 193 Mean Platelet Volume 10.5 H Immature 0.600 H Granulocytes % Neutrophils % Segmented 90 H Neutrophils % (Manual) Band Neutrophils % 1 (Manual) Lymphocytes % Lymphocytes % 5 L (Manual) Reactive Lymphocytes 3 H % (Manual) Monocytes % Eosinophils % Basophils % Basophils % (Manual) 1 Nucleated Red Blood 0.0 Cells % Immature 0.040 H Granulocytes # Neutrophils # Neutrophils # 6.1 (Manual) Band Neutrophils # 0.0 Lymphocytes (Manual) 0.3 L Lymphocytes # Reactive Lymphocytes 0.2 H # Monocytes # Eosinophils # Basophils # Basophils # (Manual) 0.0 Nucleated Red Blood Cells # Platelet Estimate NORMAL Poikilocytosis 1+ Anisocytosis 1+ Sodium Level 140 Potassium Level 3.6 Chloride Level 108 Carbon Dioxide Level 22 Anion Gap 10 Blood Urea Nitrogen 12 Creatinine 0.58 Est Glomerular > 60 Filtrat Rate mL/min Glucose Level 203 Calcium Level 8.7 Phosphorus Level 2.8 Magnesium Level 1.9 Test 07/02/18 07:58 07/02/18 11:27 Bedside Glucose 266 H 303 H Exam/Review of Systems Exam Vitals Vital Signs Date Temp Pulse Resp B/P (MAP) Pulse Ox O2 O2 Flow FiO2 Time Delivery Rate 07/02/18 61 08:02 07/02/18 98.1 19 136/58 97 07:18 (84) 07/01/18 Room Air 15:27 Intake and Output 07/01/18 07/01/18 07/02/18 1515:00 23:00 07:00 IntakeIntake Total 200 ml 700 ml 700 ml BalanceBalance 200 ml 700 ml 700 ml Results Results 24hrs Laboratory Tests Test 07/01/18 12:19 07/01/18 17:29 07/01/18 21:36 07/02/18 05:43 Bedside Glucose 166 117 178 White Blood Count 6.8 # Red Blood Count 3.14 L Hemoglobin 9.5 L Hematocrit 28.9 L Mean Corpuscular 92.0 Volume Mean Corpuscular 30.3 Hemoglobin Mean Corpuscular 32.9 Hemoglobin Concent Red Cell 12.8 Distribution Width Platelet Count 193 Mean Platelet Volume 10.5 H Immature 0.600 H Granulocytes % Neutrophils % Segmented 90 H Neutrophils % (Manual) Band Neutrophils % 1 (Manual) Lymphocytes % Lymphocytes % 5 L (Manual) Reactive Lymphocytes 3 H % (Manual) Monocytes % Eosinophils % Basophils % Basophils % (Manual) 1 Nucleated Red Blood 0.0 Cells % Immature 0.040 H Granulocytes # Neutrophils # Neutrophils # 6.1 (Manual) Band Neutrophils # 0.0 Lymphocytes (Manual) 0.3 L Lymphocytes # Reactive Lymphocytes 0.2 H # Monocytes # Eosinophils # Basophils # Basophils # (Manual) 0.0 Nucleated Red Blood Cells # Platelet Estimate NORMAL Poikilocytosis 1+ Anisocytosis 1+ Sodium Level 140 Potassium Level 3.6 Chloride Level 108 Carbon Dioxide Level 22 Anion Gap 10 Blood Urea Nitrogen 12 Creatinine 0.58 Est Glomerular > 60 Filtrat Rate mL/min Glucose Level 203 Calcium Level 8.7 Phosphorus Level 2.8 Magnesium Level 1.9 Test 07/02/18 07:58 07/02/18 11:27 Bedside Glucose 266 H 303 H Medications Medication Current Medications IV Flush (NS 3 ml) 3 ml PER PROTOCOL IV ; Start 07/01/18 at 05:00 Ondansetron HCl (Zofran Inj) 4 mg Q6H PRN IV NAUSEA/VOMITING; Start 07/01/18 at 05:00 Acetaminophen (Tylenol Tab) 650 mg Q6H PRN PO .PAIN 1-3 OR TEMP Last administered on 07/01/18at 22:58; Admin Dose 650 MG; Start 07/01/18 at 05:00 Enoxaparin Sodium (Lovenox) 40 mg DAILY SC Last administered on 07/02/18at 08:03; Admin Dose 40 MG; Start 07/01/18 at 09:00 Albuterol/ Ipratropium (Duoneb) 3 ml Q2H RESP THERAPY PRN HHN SHORTNESS OF BREATH; Start 07/01/18 at 05:00 Aspirin (Aspirin) 81 mg DAILY PO Last administered on 07/02/18at 08:00; Admin Dose 81 MG; Start 07/01/18 at 09:00 Lisinopril (Zestril) 10 mg DAILY PO Last administered on 07/02/18at 08:00; Admin Dose 10 MG; Start 07/01/18 at 09:00 Piperacillin Sod/ Tazobactam Sod 100 ml @ 200 mls/hr Q6 IVPB Last administered on 07/02/18at 11:25; Admin Dose 200 MLS/HR; Start 07/01/18 at 11:00 Vancomycin HCl (Vanco Iv Per Pharmacy) VANCOMYCIN PER PHARMACY PER PROTOCOL XX ; Start 07/01/18 at 10:00 Diagnostic Test (Pha) (Accu-Chek) 1 ea 02 XX ; Start 07/02/18 at 02:00 Insulin Aspart (Novolog Insulin Pen) NOVOLOG *MILD* ALGORITHM WITH MEALS BEDTIME SC Last administered on 07/02/18at 11:31; Admin Dose 5 UNIT; Start 07/01/18 at 11:50 Vancomycin HCl 100 ml @ 100 mls/hr Q12H IVPB Last administered on 07/02/18at 02:45; Admin Dose 100 MLS/HR; Start 07/01/18 at 13:00 Miscellaneous Information 1 ea NOTE XX ; Start 07/01/18 at 11:30 Glucose (Glutose) 15 gm Q15M PRN PO DECREASED GLUCOSE; Start 07/01/18 at 11:30 Glucose (Glutose) 22.5 gm Q15M PRN PO DECREASED GLUCOSE; Start 07/01/18 at 11:30 Dextrose (D50w Syringe) 25 ml Q15M PRN IV DECREASED GLUCOSE; Start 07/01/18 at 11:30 Dextrose (D50w Syringe) 50 ml Q15M PRN IV DECREASED GLUCOSE; Start 07/01/18 at 11:30 Glucagon (Glucagen) 1 mg Q15M PRN IM DECREASED GLUCOSE; Start 07/01/18 at 11:30 Glucose (Glutose) 15 gm Q15M PRN BUCCAL DECREASED GLUCOSE; Start 07/01/18 at 11:30 Miscellaneous Information (*Rx Drug Level Order Reminder*) VANCO TROUGH FOR @ 1,200 1200 ONCE XX ; Start 07/02/18 at 12:00; Stop 07/02/18 at 12:01 CURT LUGO Jul 02, 2018 11:51
[2018-07-02] MEDS ORDERED: DIPHENHYDRAMINE 25 MG CAP PO PRN (12:00)
--- NOTE | 2018-07-02 13:10 | CONS ---
Assessment/Plan Assessment/Plan Hospital Course (Demo Recall) ID PROGRESS NOTE CURRENT ABX: DAY # => Vanco IV + Zosyn 07/02/18 0543 07/02/18 0543 24H INTERVAL SUMMARY * Awake, alert, ambulatory in the room on room air without dyspnea. Taking POs * NO fevers DIAGNOSTIC IMAGING * 06/30/18 CXR: Mild pulmonary vascular congestion with cardiomegaly. Strandy bibasilar opacities may represent early pulmonary edema or infection. MICRO/OTHER * 06/30/18 UA (+) -- micro (-) * 06/30/18 BCX (+)GNR LOOD CULTURE Preliminary BCULT GRAM BOTTLE 1 Gram negative rods . seen on gram stain of the broth Organism 1 GRAM NEGATIVE AGNES PHYSICAL EXAMINATION: GENERAL: VSS, NAD HEENT: AT, NC, anicteric, NECK: Supple, CHEST: Lungs diminished bilaterally, no wheeze, no rhonchi HEART: Pulse RRR ABDOMEN: Soft / NT : Voiding EXTREMITIES: Warm, dry SKIN: No rash, no diaphoresis ID ASSESSMENT 68 yo F admit with: Sepsis: Secondary to UTI/PNA Complicated UTI Early pneumonia -Influenza negative. Follow-up culture results Pulmonary edema on chest x-ray Hypertension: Continue meds. Adjust as needed Diabetes Right shoulder pain: * 07/01/18 XR: 1. No evidence for bone destructive change. 2. No acute fracture or dislocation is seen. 3. Supraspinatus insertional calcific tendonitis versus old post-traumatic dystrophic calcification/ossification. (-)MRSA Nares ABX ALLERGIES: KNDA INVASIVES: PIV CURRENT ABX: DAY # => Vanco IV + Zosyn ID RECOMMENDATIONS/PLAN: 1. Await final micro -- taper ABX per C&S results * == she will need 14 days total ABX for GNR bacteremia, possible PO switch on days 7-14 Consultation Date/Type/Reason Admit Date/Time Jun 30, 2018 at 22:54 Initial Consult Date Date/Time of Note DATE: 07/02/18 TIME: 13:10 Exam/Review of Systems Exam Vitals Vital Signs Date Temp Pulse Resp B/P (MAP) Pulse Ox O2 O2 Flow FiO2 Time Delivery Rate 07/02/18 57 12:43 07/02/18 98.1 17 148/67 95 11:30 (94) 07/01/18 Room Air 15:27 Intake and Output 07/01/18 07/01/18 07/02/18 1515:00 23:00 07:00 IntakeIntake Total 200 ml 700 ml 700 ml BalanceBalance 200 ml 700 ml 700 ml Results Result Diagram: 07/02/18 0543 07/02/18 0543 Results 24hrs Laboratory Tests Test 07/01/18 17:29 07/01/18 21:36 07/02/18 05:43 07/02/18 07:58 Bedside Glucose 117 178 266 H White Blood Count 6.8 # Red Blood Count 3.14 L Hemoglobin 9.5 L Hematocrit 28.9 L Mean Corpuscular 92.0 Volume Mean Corpuscular 30.3 Hemoglobin Mean Corpuscular 32.9 Hemoglobin Concent Red Cell 12.8 Distribution Width Platelet Count 193 Mean Platelet Volume 10.5 H Immature 0.600 H Granulocytes % Neutrophils % Segmented 90 H Neutrophils % (Manual) Band Neutrophils % 1 (Manual) Lymphocytes % Lymphocytes % 5 L (Manual) Reactive Lymphocytes 3 H % (Manual) Monocytes % Eosinophils % Basophils % Basophils % (Manual) 1 Nucleated Red Blood 0.0 Cells % Immature 0.040 H Granulocytes # Neutrophils # Neutrophils # 6.1 (Manual) Band Neutrophils # 0.0 Lymphocytes (Manual) 0.3 L Lymphocytes # Reactive Lymphocytes 0.2 H # Monocytes # Eosinophils # Basophils # Basophils # (Manual) 0.0 Nucleated Red Blood Cells # Platelet Estimate NORMAL Poikilocytosis 1+ Anisocytosis 1+ Sodium Level 140 Potassium Level 3.6 Chloride Level 108 Carbon Dioxide Level 22 Anion Gap 10 Blood Urea Nitrogen 12 Creatinine 0.58 Est Glomerular > 60 Filtrat Rate mL/min Glucose Level 203 Calcium Level 8.7 Phosphorus Level 2.8 Magnesium Level 1.9 Test 07/02/18 11:27 07/02/18 12:06 Bedside Glucose 303 H Vancomycin Level < 5.0 L Trough Medications Medication Current Medications IV Flush (NS 3 ml) 3 ml PER PROTOCOL IV ; Start 07/01/18 at 05:00 Ondansetron HCl (Zofran Inj) 4 mg Q6H PRN IV NAUSEA/VOMITING; Start 07/01/18 at 05:00 Acetaminophen (Tylenol Tab) 650 mg Q6H PRN PO .PAIN 1-3 OR TEMP Last administered on 07/01/18at 22:58; Admin Dose 650 MG; Start 07/01/18 at 05:00 Enoxaparin Sodium (Lovenox) 40 mg DAILY SC Last administered on 07/02/18at 08:03; Admin Dose 40 MG; Start 07/01/18 at 09:00 Albuterol/ Ipratropium (Duoneb) 3 ml Q2H RESP THERAPY PRN HHN SHORTNESS OF BREATH; Start 07/01/18 at 05:00 Aspirin (Aspirin) 81 mg DAILY PO Last administered on 07/02/18at 08:00; Admin Dose 81 MG; Start 07/01/18 at 09:00 Lisinopril (Zestril) 10 mg DAILY PO Last administered on 07/02/18at 08:00; Admin Dose 10 MG; Start 07/01/18 at 09:00 Piperacillin Sod/ Tazobactam Sod 100 ml @ 200 mls/hr Q6 IVPB Last administered on 07/02/18at 11:25; Admin Dose 200 MLS/HR; Start 07/01/18 at 11:00 Vancomycin HCl (Vanco Iv Per Pharmacy) VANCOMYCIN PER PHARMACY PER PROTOCOL XX ; Start 07/01/18 at 10:00 Diagnostic Test (Pha) (Accu-Chek) 1 ea 02 XX ; Start 07/02/18 at 02:00 Insulin Aspart (Novolog Insulin Pen) NOVOLOG *MILD* ALGORITHM WITH MEALS BEDTIME SC Last administered on 07/02/18at 11:31; Admin Dose 5 UNIT; Start 07/01/18 at 11:50 Vancomycin HCl 100 ml @ 100 mls/hr Q12H IVPB Last administered on 07/02/18at 02:45; Admin Dose 100 MLS/HR; Start 07/01/18 at 13:00 Miscellaneous Information 1 ea NOTE XX ; Start 07/01/18 at 11:30 Glucose (Glutose) 15 gm Q15M PRN PO DECREASED GLUCOSE; Start 07/01/18 at 11:30 Glucose (Glutose) 22.5 gm Q15M PRN PO DECREASED GLUCOSE; Start 07/01/18 at 11:30 Dextrose (D50w Syringe) 25 ml Q15M PRN IV DECREASED GLUCOSE; Start 07/01/18 at 11:30 Dextrose (D50w Syringe) 50 ml Q15M PRN IV DECREASED GLUCOSE; Start 07/01/18 at 11:30 Glucagon (Glucagen) 1 mg Q15M PRN IM DECREASED GLUCOSE; Start 07/01/18 at 11:30 Glucose (Glutose) 15 gm Q15M PRN BUCCAL DECREASED GLUCOSE; Start 07/01/18 at 11:30 Diphenhydramine HCl (Benadryl) 25 mg Q6H PRN PO ITCHING; Start 07/02/18 at 12:00 SNEHA DILLON NP Jul 02, 2018 13:10
[2018-07-02] MEDS: hydrALAzine 20 MG INJ IV PRN (16:40)
[2018-07-02] MEDS: VANCOMYCIN 1 GM 250 ML IVPB SCH (21:06)
[2018-07-03] VITALS (11 sets, daily range): BP systolic 145–202; BP diastolic 60–98; PULSE 55–72; RESP 16–20
[2018-07-03] MEDS: PIPER-TAZO 3.375 GM IV (PMX) 100 ML IVPB SCH ×2 (01:02→05:52)
[2018-07-03] MEDS: ACETAMINOPHEN 325 MG TAB PO PRN ×2 (01:47→20:32)
[2018-07-03] MEDS: ACCU-CHEK XX SCH (02:00)
[2018-07-03] MEDS: INSULIN ASPART [NOVOLOG] 3 ML PEN SC SCH ×4 (08:12→20:39)
[2018-07-03] MEDS: ASPIRIN 81 MG TAB PO SCH (08:44)
[2018-07-03] MEDS: VANCOMYCIN 1 GM 250 ML IVPB SCH (08:45)
[2018-07-03] MEDS: LISINOPRIL 10 MG TAB PO SCH (08:45)
[2018-07-03] MEDS: ENOXAPARIN 40 MG/0.4 ML SYG SC SCH (08:47)
--- NOTE | 2018-07-03 10:26 | PN ---
Date/Time of Note Date/Time of Note DATE: 07/03/18 TIME: 10:24 Assessment/Plan VTE Prophylaxis Risk score (from Nsg)>0 risk: 3 SCD applied (from Ns): No SCD contraindicated: other Pharmacological prophylaxis: LMWH Lines/Catheters IV Catheter Type (from Nrsg): [place]ine Lock Assessment/Plan Hospital Course S: Patient had no fevers overnight. Seen by ID team yesterday. O: VS - see below PE: Constitutional: lying in bed, no acute distress Head: normocephalic, atraumatic Eyes: EOMI, PERRL Respiratory: other (less decreased breath sounds at the bases bilaterally) Cardiovascular: S1, S2 heard Gastrointestinal: soft Musculoskeletal: still having some mild right shoulder pain Extremities: normal pulses Right shoulder x-ray: IMPRESSION: 1. No evidence for bone destructive change. 2. No acute fracture or dislocation is seen. 3. Supraspinatus insertional calcific tendonitis versus old post-traumatic dy strophic calcification/ossification. Assessment/Plan: 68-year-old female who presents with: 1. Sepsis: Secondary to UTI and possibly early pneumonia. As well, 2 out of 2 blood culture bottles positive for E. coli -Continue current broad-spectrum IV antibiotics follow-up recommendations from ID consult -will ask if patient needs PICC placement as well -Cautious with IV fluids given possible pulmonary edema on chest x-ray 2. Hypertension: Blood pressure stable - continue meds. Adjust as needed 3. Diabetes: Sugars were slightly elevated earlier today, likely secondary to IV steroid x1 dose patient got yesterday. A1c was 6.5 -Monitor, continue sliding scale insulin while in-house -Holding home metformin for now 4. Right shoulder pain: Patient mentioned about arthritis. She has full range of motion and there is no obvious deformity. X-ray results noted -Pain management for now, monitor - PT and OT Result Diagram: 07/03/18 0542 07/03/18 0542 Results 24hrs Laboratory Tests Test 07/02/18 11:27 07/02/18 12:06 07/02/18 17:16 07/02/18 21:03 Bedside Glucose 303 H 303 H 286 H Vancomycin Level < 5.0 L Trough Test 07/03/18 01:52 07/03/18 05:42 07/03/18 08:05 Bedside Glucose 179 147 White Blood Count 8.1 Red Blood Count 3.01 L Hemoglobin 9.0 L Hematocrit 27.3 L Mean Corpuscular 90.7 Volume Mean Corpuscular 29.9 Hemoglobin Mean Corpuscular 33.0 Hemoglobin Concent Red Cell 12.9 Distribution Width Platelet Count 212 Mean Platelet Volume 11.1 H Immature 0.500 H Granulocytes % Neutrophils % 61.2 Lymphocytes % 29.7 Monocytes % 8.0 Eosinophils % 0.4 Basophils % 0.2 Nucleated Red Blood 0.0 Cells % Immature 0.040 H Granulocytes # Neutrophils # 4.9 Lymphocytes # 2.4 Monocytes # 0.7 Eosinophils # 0.0 Basophils # 0.0 Nucleated Red Blood 0.0 Cells # Sodium Level 140 Potassium Level 3.6 Chloride Level 107 Carbon Dioxide Level 24 Anion Gap 9 Blood Urea Nitrogen 13 Creatinine 0.60 Est Glomerular > 60 Filtrat Rate mL/min Glucose Level 147 # Calcium Level 8.9 Phosphorus Level 2.6 Magnesium Level 1.8 Exam/Review of Systems Exam Vitals Vital Signs Date Temp Pulse Resp B/P (MAP) Pulse Ox O2 O2 Flow FiO2 Time Delivery Rate 07/03/18 65 08:03 07/03/18 98.3 18 174/71 97 07:25 (105) 07/03/18 Room Air 04:00 Intake and Output 07/02/18 07/02/18 07/03/18 1515:00 23:00 07:00 IntakeIntake Total 100 ml 1070 ml 1200 ml BalanceBalance 100 ml 1070 ml 1200 ml Results Results 24hrs Laboratory Tests Test 07/02/18 11:27 07/02/18 12:06 07/02/18 17:16 07/02/18 21:03 Bedside Glucose 303 H 303 H 286 H Vancomycin Level < 5.0 L Trough Test 07/03/18 01:52 07/03/18 05:42 07/03/18 08:05 Bedside Glucose 179 147 White Blood Count 8.1 Red Blood Count 3.01 L Hemoglobin 9.0 L Hematocrit 27.3 L Mean Corpuscular 90.7 Volume Mean Corpuscular 29.9 Hemoglobin Mean Corpuscular 33.0 Hemoglobin Concent Red Cell 12.9 Distribution Width Platelet Count 212 Mean Platelet Volume 11.1 H Immature 0.500 H Granulocytes % Neutrophils % 61.2 Lymphocytes % 29.7 Monocytes % 8.0 Eosinophils % 0.4 Basophils % 0.2 Nucleated Red Blood 0.0 Cells % Immature 0.040 H Granulocytes # Neutrophils # 4.9 Lymphocytes # 2.4 Monocytes # 0.7 Eosinophils # 0.0 Basophils # 0.0 Nucleated Red Blood 0.0 Cells # Sodium Level 140 Potassium Level 3.6 Chloride Level 107 Carbon Dioxide Level 24 Anion Gap 9 Blood Urea Nitrogen 13 Creatinine 0.60 Est Glomerular > 60 Filtrat Rate mL/min Glucose Level 147 # Calcium Level 8.9 Phosphorus Level 2.6 Magnesium Level 1.8 Medications Medication Current Medications IV Flush (NS 3 ml) 3 ml PER PROTOCOL IV ; Start 07/01/18 at 05:00 Ondansetron HCl (Zofran Inj) 4 mg Q6H PRN IV NAUSEA/VOMITING; Start 07/01/18 at 05:00 Acetaminophen (Tylenol Tab) 650 mg Q6H PRN PO .PAIN 1-3 OR TEMP Last administered on 07/03/18at 01:47; Admin Dose 650 MG; Start 07/01/18 at 05:00 Enoxaparin Sodium (Lovenox) 40 mg DAILY SC Last administered on 07/03/18at 0 8:47; Admin Dose 40 MG; Start 07/01/18 at 09:00 Albuterol/ Ipratropium (Duoneb) 3 ml Q2H RESP THERAPY PRN HHN SHORTNESS OF BREATH; Start 07/01/18 at 05:00 Aspirin (Aspirin) 81 mg DAILY PO Last administered on 07/03/18at 08:44; Admin Dose 81 MG; Start 07/01/18 at 09:00 Lisinopril (Zestril) 10 mg DAILY PO Last administered on 07/03/18at 08:45; Admin Dose 10 MG; Start 07/01/18 at 09:00 Piperacillin Sod/ Tazobactam Sod 100 ml @ 200 mls/hr Q6 IVPB Last administered on 07/03/18at 05:52; Admin Dose 200 MLS/HR; Start 07/01/18 at 11:00 Vancomycin HCl (Vanco Iv Per Pharmacy) VANCOMYCIN PER PHARMACY PER PROTOCOL XX ; Start 07/01/18 at 10:00 Diagnostic Test (Pha) (Accu-Chek) 1 XX ; Start 07/02/18 at 02:00 Insulin Aspart (Novolog Insulin Pen) NOVOLOG *MILD* ALGORITHM WITH MEALS BEDTIME SC Last administered on 07/03/18at 08:12; Admin Dose 1 UNIT; Start 07/01/18 at 11:50 Miscellaneous Information 1 ea NOTE XX ; Start 07/01/18 at 11:30 Glucose (Glutose) 15 gm Q15M PRN PO DECREASED GLUCOSE; Start 07/01/18 at 11:30 Glucose (Glutose) 22.5 gm Q15M PRN PO DECREASED GLUCOSE; Start 07/01/18 at 1 1:30 Dextrose (D50w Syringe) 25 ml Q15M PRN IV DECREASED GLUCOSE; Start 07/01/18 at 11:30 Dextrose (D50w Syringe) 50 ml Q15M PRN IV DECREASED GLUCOSE; Start 07/01/18 at 11:30 Glucagon (Glucagen) 1 mg Q15M PRN IM DECREASED GLUCOSE; Start 07/01/18 at 11:30 Glucose (Glutose) 15 gm Q15M PRN BUCCAL DECREASED GLUCOSE; Start 07/01/18 at 11:30 Diphenhydramine HCl (Benadryl) 25 mg Q6H PRN PO ITCHING; Start 07/02/18 at 12:00 Vancomycin HCl 250 ml @ 125 mls/hr Q12H IVPB Last administered on 07/03/18at 08:45; Admin Dose 125 MLS/HR; Start 07/02/18 at 21:00 Hydralazine HCl (Apresoline) 10 mg Q6H PRN IV ELEVATED BLOOD PRESSURE Last administered on 07/02/18at 16:40; Admin Dose 10 MG; Start 07/02/18 at 16:30 Miscellaneous Information (*Rx Drug Level Order Reminder*) VANCO TROUGH ON @ 800 0800 ONCE XX ; Start 07/04/18 at 08:00; Stop 07/04/18 at 08:01 CURT LUGO Jul 03, 2018 10:26
--- NOTE | 2018-07-03 10:33 | CONS ---
Assessment/Plan Assessment/Plan Hospital Course (Demo Recall) ID PROGRESS NOTE CURRENT ABX: DAY # => Vanco IV + Zosyn 07/03/18 0542 07/03/18 0542 24H INTERVAL SUMMARY * Clinically w/marked improvement -- Awake, alert, ambulatory in the room on room air without dyspnea. * Denies dysuria/ABD/flank pain --- Taking POs, NO fevers DIAGNOSTIC IMAGING * 06/30/18 CXR: Mild pulmonary vascular congestion with cardiomegaly. Strandy bibasilar opacities may represent early pulmonary edema or infection. MICRO/OTHER * 06/30/18 UA (+) -- micro (-) * 06/30/18 BCX 2/2 bottles (+)GNR BLOOD CULTURE Final Organism 1 ESCHERICHIA COLI E COLI [facility]. RX --------- --- AMPICILLIN <=2 S CEFAZOLIN I CEFOTAXIME S CIPROFLOXACIN <=0.25 S GENTAMICIN <=1 S LEVOFLOXACIN <=0.12 S TOBRAMYCIN <=1 S TRIMETHOPRIM/SULFAMETHOXAZOLE <=20 S PHYSICAL EXAMINATION: GENERAL: VSS, NAD HEENT: AT, NC, anicteric, NECK: Supple, CHEST: Lungs diminished bilaterally, no wheeze, no rhonchi HEART: Pulse RRR ABDOMEN: Soft / NT : Voiding EXTREMITIES: Warm, dry SKIN: No rash, no diaphoresis ID ASSESSMENT 68 yo F admit with: Sepsis: Secondary to UTI/PNA Complicated UTI Early pneumonia - LUNGS without rhonchi Pulmonary edema on chest x-ray Hypertension: Diabetes Right shoulder pain: * 07/01/18 XR: 1. No evidence for bone destructive change. 2. No acute fracture or dislocation is seen. 3. Supraspinatus insertional calcific tendonitis versus old post-traumatic dystrophic calcification/ossification. (-)MRSA Nares ABX ALLERGIES: QUINOLONE INVASIVES: PIV CURRENT ABX: DAY # => Vanco IV + Zosyn ID RECOMMENDATIONS/PLAN: 1 May DC on Ceftriaxone 1 GM IV daily to complete 14 days. 2. DC Vanco IV/ Zosyn . Consultation Date/Type/Reason Admit Date/Time Jun 30, 2018 at 22:54 Initial Consult Date Date/Time of Note DATE: 07/03/18 TIME: 10:30 Exam/Review of Systems Exam Vitals Vital Signs Date Temp Pulse Resp B/P (MAP) Pulse Ox O2 O2 Flow FiO2 Time Delivery Rate 07/03/18 65 08:03 07/03/18 98.3 18 174/71 97 07:25 (105) 07/03/18 Room Air 04:00 Intake and Output 07/02/18 07/02/18 07/03/18 1515:00 23:00 07:00 IntakeIntake Total 100 ml 1070 ml 1200 ml BalanceBalance 100 ml 1070 ml 1200 ml Results Result Diagram: 07/03/18 0542 07/03/18 0542 Results 24hrs Laboratory Tests Test 07/02/18 11:27 07/02/18 12:06 07/02/18 17:16 07/02/18 21:03 Bedside Glucose 303 H 303 H 286 H Vancomycin Level < 5.0 L Trough Test 07/03/18 01:52 07/03/18 05:42 07/03/18 08:05 Bedside Glucose 179 147 White Blood Count 8.1 Red Blood Count 3.01 L Hemoglobin 9.0 L Hematocrit 27.3 L Mean Corpuscular 90.7 Volume Mean Corpuscular 29.9 Hemoglobin Mean Corpuscular 33.0 Hemoglobin Concent Red Cell 12.9 Distribution Width Platelet Count 212 Mean Platelet Volume 11.1 H Immature 0.500 H Granulocytes % Neutrophils % 61.2 Lymphocytes % 29.7 Monocytes % 8.0 Eosinophils % 0.4 Basophils % 0.2 Nucleated Red Blood 0.0 Cells % Immature 0.040 H Granulocytes # Neutrophils # 4.9 Lymphocytes # 2.4 Monocytes # 0.7 Eosinophils # 0.0 Basophils # 0.0 Nucleated Red Blood 0.0 Cells # Sodium Level 140 Potassium Level 3.6 Chloride Level 107 Carbon Dioxide Level 24 Anion Gap 9 Blood Urea Nitrogen 13 Creatinine 0.60 Est Glomerular > 60 Filtrat Rate mL/min Glucose Level 147 # Calcium Level 8.9 Phosphorus Level 2.6 Magnesium Level 1.8 Medications Medication Current Medications IV Flush (NS 3 ml) 3 ml PER PROTOCOL IV ; Start 07/01/18 at 05:00 Ondansetron HCl (Zofran Inj) 4 mg Q6H PRN IV NAUSEA/VOMITING; Start 07/01/18 at 05:00 Acetaminophen (Tylenol Tab) 650 mg Q6H PRN PO .PAIN 1-3 OR TEMP Last administered on 07/03/18at 01:47; Admin Dose 650 MG; Start 07/01/18 at 05:00 Enoxaparin Sodium (Lovenox) 40 mg DAILY SC Last administered on 07/03/18at 08:47; Admin Dose 40 MG; Start 07/01/18 at 09:00 Albuterol/ Ipratropium (Duoneb) 3 ml Q2H RESP THERAPY PRN HHN SHORTNESS OF BREATH; Start 07/01/18 at 05:00 Aspirin (Aspirin) 81 mg DAILY PO Last administered on 07/03/18at 08:44; Admin Dose 81 MG; Start 07/01/18 at 09:00 Lisinopril (Zestril) 10 mg DAILY PO Last administered on 07/03/18at 08:45; Admin Dose 10 MG; Start 07/01/18 at 09:00 Piperacillin Sod/ Tazobactam Sod 100 ml @ 200 mls/hr Q6 IVPB Last administered on 07/03/18at 05:52; Admin Dose 200 MLS/HR; Start 07/01/18 at 11:00 Vancomycin HCl (Vanco Iv Per Pharmacy) VANCOMYCIN PER PHARMACY PER PROTOCOL XX ; Start 07/01/18 at 10:00 Diagnostic Test (Pha) (Accu-Chek) 1 ea 02 XX ; Start 07/02/18 at 02:00 Insulin Aspart (Novolog Insulin Pen) NOVOLOG *MILD* ALGORITHM WITH MEALS BEDTIME SC Last administered on 07/03/18at 08:12; Admin Dose 1 UNIT; Start 07/01/18 at 11:50 Miscellaneous Information 1 ea NOTE XX ; Start 07/01/18 at 11:30 Glucose (Glutose) 15 gm Q15M PRN PO DECREASED GLUCOSE; Start 07/01/18 at 11:30 Glucose (Glutose) 22.5 gm Q15M PRN PO DECREASED GLUCOSE; Start 07/01/18 at 11:30 Dextrose (D50w Syringe) 25 ml Q15M PRN IV DECREASED GLUCOSE; Start 07/01/18 at 11:30 Dextrose (D50w Syringe) 50 ml Q15M PRN IV DECREASED GLUCOSE; Start 07/01/18 at 11:30 Glucagon (Glucagen) 1 mg Q15M PRN IM DECREASED GLUCOSE; Start 07/01/18 at 11:30 Glucose (Glutose) 15 gm Q15M PRN BUCCAL DECREASED GLUCOSE; Start 07/01/18 at 11:30 Diphenhydramine HCl (Benadryl) 25 mg Q6H PRN PO ITCHING; Start 07/02/18 at 12:00 Vancomycin HCl 250 ml @ 125 mls/hr Q12H IVPB Last administered on 07/03/18at 08:45; Admin Dose 125 MLS/HR; Start 07/02/18 at 21:00 Hydralazine HCl (Apresoline) 10 mg Q6H PRN IV ELEVATED BLOOD PRESSURE Last administered on 07/02/18at 16:40; Admin Dose 10 MG; Start 07/02/18 at 16:30 Miscellaneous Information (*Rx Drug Level Order Reminder*) VANCO TROUGH ON @ 800 0800 ONCE XX ; Start 07/04/18 at 08:00; Stop 07/04/18 at 08:01 SNEHA DILLON NP Jul 03, 2018 10:33
[2018-07-03] MEDS ORDERED: CEFTRIAXONE 1 GM/50 ML (PMX) 50 ML IVPB SCH (11:00)
[2018-07-03] MEDS ORDERED: LIDOCAINE 1% (MPF) 5 ML VIAL SC ONE (11:00)
[2018-07-03] MEDS: CEFTRIAXONE 1 GM/50 ML (PMX) 50 ML IVPB SCH (11:38)
[2018-07-03] MEDS: hydrALAzine 20 MG INJ IV PRN (23:42)
[2018-07-04] VITALS (7 sets, daily range): BP systolic 145–179; BP diastolic 61–106; PULSE 60–75; RESP 17–18
[2018-07-04] MEDS: ACCU-CHEK XX SCH (02:54)
[2018-07-04] MEDS: ASPIRIN 81 MG TAB PO SCH (08:47)
[2018-07-04] MEDS: LISINOPRIL 10 MG TAB PO SCH (08:48)
[2018-07-04] MEDS: INSULIN ASPART [NOVOLOG] 3 ML PEN SC SCH ×4 (08:50→21:18)
[2018-07-04] MEDS: ENOXAPARIN 40 MG/0.4 ML SYG SC SCH (08:51)
[2018-07-04] MEDS ORDERED: POTASSIUM CHLORIDE 20 MEQ POWDER FOR ORAL SOLN PO ONE (11:00)
[2018-07-04] MEDS: CEFTRIAXONE 1 GM/50 ML (PMX) 50 ML IVPB SCH (11:32)
[2018-07-04] MEDS ORDERED: MAGNESIUM SULFATE 2 GM/50 ML 50 ML IVPB ONE (12:00)
--- NOTE | 2018-07-04 14:58 | PN ---
Date/Time of Note Date/Time of Note DATE: 07/04/18 TIME: 14:50 Assessment/Plan VTE Prophylaxis Risk score (from Nsg)>0 risk: 4 SCD applied (from Nsg): No SCD contraindicated: other (no) Pharmacological prophylaxis: LMWH Lines/Catheters IV Catheter Type (from Nrsg): PICC Line Central line still needed: Yes Urinary Cath still in place: No Assessment/Plan Assessment/Plan 68 yo obese woman presents with fever and chills, found to have E Coli bacteremia from unclear source. # Bacteremia - May be from UTI. Patient reports mild burning dysuria on admission, fever and chills. - CXR with mild opacity, but no productive cough to suggest pneumonia. - 2/2 bottles E Coli. - Per ID recommendation, she needs IV ceftriaxone. - But insurance will not pay for IV antibiotics at home so will keep patient here for now. # Hypertension: - Uncontrolled blood pressure. On lisinopril at home; will double dose. # Diabetes: A1c was 6.5 -Monitor, continue sliding scale insulin while in-house -Holding home metformin for now # Right shoulder pain: Patient mentioned about arthritis. She has full range of motion and there is no obvious deformity. -Pain management for now, monitor - PT and OT Result Diagram: 07/04/18 0605 07/04/18 0605 Subjective 24 Hr Interval Summary Free Text/Dictation No acute overnight events. Lying in bed comfortably. Exam/Review of Systems Exam Vitals Vital Signs Date Temp Pulse Resp B/P (MAP) Pulse Ox O2 O2 Flow FiO2 Time Delivery Rate 07/04/18 60 157/106 08:44 (123) 07/04/18 98.3 18 97 Room Air 07:57 Intake and Output 07/03/18 07/03/18 07/04/18 1414:59 22:59 06:59 IntakeIntake Total 1050 ml 300 ml BalanceBalance 1050 ml 300 ml Exam Constitutional: Obese woman lying in bed, no acute distress Head: normocephalic, atraumatic Eyes: EOMI, PERRL Respiratory: Clear lung sounds bilaterally. Cardiovascular: S1, S2 heard Gastrointestinal: soft Musculoskeletal: still having some mild right shoulder pain Extremities: normal pulses Results Results 24hrs Laboratory Tests Test 07/03/18 18:16 07/03/18 20:36 07/03/18 23:37 07/04/18 02:31 Bedside Glucose 231 H 192 124 136 Test 07/04/18 06:05 07/04/18 08:36 07/04/18 12:22 White Blood Count 7.3 Red Blood Count 3.23 L Hemoglobin 9.8 L Hematocrit 29.1 L Mean Corpuscular 90.1 Volume Mean Corpuscular 30.3 Hemoglobin Mean Corpuscular 33.7 Hemoglobin Concent Red Cell 13.1 Distribution Width Platelet Count 246 Mean Platelet Volume 10.8 H Immature 0.300 Granulocytes % Neutrophils % 57.3 Lymphocytes % 33.0 Monocytes % 8.0 Eosinophils % 1.0 Basophils % 0.4 Nucleated Red Blood 0.0 Cells % Immature 0.020 Granulocytes # Neutrophils # 4.2 Lymphocytes # 2.4 Monocytes # 0.6 Eosinophils # 0.1 Basophils # 0.0 Nucleated Red Blood 0.0 Cells # Sodium Level 141 Potassium Level 3.4 L Chloride Level 107 Carbon Dioxide Level 29 Anion Gap 5 Blood Urea Nitrogen 10 Creatinine 0.52 Est Glomerular > 60 Filtrat Rate mL/min Glucose Level 135 Calcium Level 9.3 Phosphorus Level 4.1 Magnesium Level 1.6 L Bedside Glucose 159 156 Medications Medication Current Medications IV Flush (NS 3 ml) 3 ml PER PROTOCOL IV ; Start 07/01/18 at 05:00 Ondansetron HCl (Zofran Inj) 4 mg Q6H PRN IV NAUSEA/VOMITING; Start 07/01/18 at 05:00 Acetaminophen (Tylenol Tab) 650 mg Q6H PRN PO .PAIN 1-3 OR TEMP Last administered on 07/03/18at 20:32; Admin Dose 650 MG; Start 07/01/18 at 05:00 Enoxaparin Sodium (Lovenox) 40 mg DAILY SC Last administered on 07/04/18at 08:51; Admin Dose 40 MG; Start 07/01/18 at 09:00 Albuterol/ Ipratropium (Duoneb) 3 ml Q2H RESP THERAPY PRN HHN SHORTNESS OF BREATH; Start 07/01/18 at 05:00 Aspirin (Aspirin) 81 mg DAILY PO Last administered on 07/04/18at 08:47; Admin Dose 81 MG; Start 07/01/18 at 09:00 Lisinopril (Zestril) 10 mg DAILY PO Last administered on 07/04/18at 08:48; Admin Dose 10 MG; Start 07/01/18 at 09:00 Diagnostic Test (Pha) (Accu-Chek) 1 ea 02 XX Last administered on 07/04/18at 02:54; Admin Dose 1 EA; Start 07/02/18 at 02:00 Insulin Aspart (Novolog Insulin Pen) NOVOLOG *MILD* ALGORITHM WITH MEALS BEDTIME SC Last administered on 07/04/18 12:28; Admin Dose 1 UNIT; Start 07/01/18 at 11:50 Miscellaneous Information 1 ea NOTE XX ; Start 07/01/18 at 11:30 Glucose (Glutose) 15 gm Q15M PRN PO DECREASED GLUCOSE; Start 07/01/18 at 11:30 Glucose (Glutose) 22.5 gm Q15M PRN PO DECREASED GLUCOSE; Start 07/01/18 at 11:30 Dextrose (D50w Syringe) 25 ml Q15M PRN IV DECREASED GLUCOSE; Start 07/01/18 at 11:30 Dextrose (D50w Syringe) 50 ml Q15M PRN IV DECREASED GLUCOSE; Start 07/01/18 at 11:30 Glucagon (Glucagen) 1 mg Q15M PRN IM DECREASED GLUCOSE; Start 07/01/18 at 11:30 Glucose (Glutose) 15 gm Q15M PRN BUCCAL DECREASED GLUCOSE; Start 07/01/18 at 11:30 Diphenhydramine HCl (Benadryl) 25 mg Q6H PRN PO ITCHING; Start 07/02/18 at 12:00 Hydralazine HCl (Apresoline) 10 mg Q6H PRN IV ELEVATED BLOOD PRESSURE Last administered on 07/03/18at 23:42; Admin Dose 10 MG; Start 07/02/18 at 16:30 Ceftriaxone Sodium 50 ml @ 100 mls/hr Q24H IVPB Last administered on 07/04/18at 11:32; Admin Dose 100 MLS/HR; Start 07/03/18 at 10:30; Stop 07/15/18 at 10:29 IV Flush (NS 10 ml) 10 ml Q12 IV Last administered on 07/04/18at 08:47; Admin Dose 10 ML; Start 07/03/18 at 21:00 ERICKA DALEY MD Jul 04, 2018 14:58
[2018-07-04] MEDS: hydrALAzine 20 MG INJ IV PRN (15:45)
[2018-07-05 02:00] VITALS: BP 146/62; PULSE 68; RESP 17
[2018-07-05] MEDS: ACCU-CHEK XX SCH (02:00)
[2018-07-05 07:53] VITALS: BP 170/73; PULSE 63; RESP 18
[2018-07-05] MEDS: INSULIN ASPART [NOVOLOG] 3 ML PEN SC SCH ×4 (08:00→20:33)
[2018-07-05] MEDS: ASPIRIN 81 MG TAB PO SCH (08:52)
[2018-07-05] MEDS: ENOXAPARIN 40 MG/0.4 ML SYG SC SCH (08:53)
[2018-07-05] MEDS: LISINOPRIL 20 MG TAB PO SCH (08:53)
[2018-07-05] MEDS: CEFTRIAXONE 1 GM/50 ML (PMX) 50 ML IVPB SCH (10:35)
--- NOTE | 2018-07-05 13:32 | PN ---
Date/Time of Note Date/Time of Note DATE: 07/05/18 TIME: 13:30 Assessment/Plan VTE Prophylaxis Risk score (from Nsg)>0 risk: 4 SCD applied (from Ns): No SCD contraindicated: other (not contraindicated) Pharmacological prophylaxis: LMWH Lines/Catheters IV Catheter Type (from Nrsg): PICC Line Central line still needed: Yes Urinary Cath still in place: No Assessment/Plan Assessment/Plan 68 yo obese woman presents with fever and chills, found to have E Coli bacteremia from unclear source. # Bacteremia - May be from UTI. Patient reports mild burning dysuria on admission, fever and chills. - CXR with mild opacity, but no productive cough to suggest pneumonia. - 2/2 bottles E Coli. - Per ID recommendation, she needs IV ceftriaxone. - But insurance will not pay for IV antibiotics at home so will keep patient here for now. # Hypertension: - Uncontrolled blood pressure. On lisinopril at home; will double dose. # Diabetes: A1c was 6.5 -Monitor, continue sliding scale insulin while in-house -Holding home metformin for now # Right shoulder pain: Patient mentioned about arthritis. She has full range of motion and there is no obvious deformity. -Pain management for now, monitor - PT and OT Dispo: Medically stable for discharge on IV ceftriaxone. Result Diagram: 07/04/1860407/04/18604 Subjective 24 Hr Interval Summary Free Text/Dictation No acute overnight events. Patient feeling well, no complaints. Exam/Review of Systems Exam Vitals Vital Signs Date Temp Pulse Resp B/P (MAP) Pulse Ox O2 O2 Flow FiO2 Time Delivery Rate 07/05/18 97.9 63 18 170/73 98 Room Air 07:53 (105) Intake and Output 07/04/18 07/04/18 07/05/18 1414:59 22:59 06:59 IntakeIntake Total 50 ml 450 ml BalanceBalance 50 ml 450 ml Exam Constitutional: Obese woman lying in bed, no acute distress Head: normocephalic, atraumatic Eyes: EOMI, PERRL Respiratory: Clear lung sounds bilaterally. Cardiovascular: S1, S2 heard Gastrointestinal: soft Musculoskeletal: still having some mild right shoulder pain Extremities: normal pulses Results Results 24hrs Laboratory Tests Test 07/04/18 17:42 07/04/18 21:11 07/05/18 02:26 07/05/18 07:48 Bedside Glucose 132 187 141 127 Test 07/05/18 11:58 Bedside Glucose 144 Medications Medication Current Medications IV Flush (NS 3 ml) 3 ml PER PROTOCOL IV ; Start 07/01/18 at 05:00 Ondansetron HCl (Zofran Inj) 4 mg Q6H PRN IV NAUSEA/VOMITING; Start 07/01/18 at 05:00 Acetaminophen (Tylenol Tab) 650 mg Q6H PRN PO .PAIN 1-3 OR TEMP Last administ ered on 07/03/18at 20:32; Admin Dose 650 MG; Start 07/01/18 at 05:00 Enoxaparin Sodium (Lovenox) 40 mg DAILY SC Last administered on 07/05/18at 08:53; Admin Dose 40 MG; Start 07/01/18 at 09:00 Albuterol/ Ipratropium (Duoneb) 3 ml Q2H RESP THERAPY PRN HHN SHORTNESS OF BREATH; Start 07/01/18 at 05:00 Aspirin (Aspirin) 81 mg DAILY PO Last administered on 07/05/18at 08:52; Admin Dose 81 MG; Start 07/01/18 at 09:00 Diagnostic Test (Pha) (Accu-Chek) 1 ea 02 XX Last administered on 07/04/18at 02:54; Admin Dose 1 EA; Start 07/02/18 at 02:00 Insulin Aspart (Novolog Insulin Pen) NOVOLOG *MILD* ALGORITHM WITH MEALS BEDTIME SC Last administered on 07/05/18at 12:26; Admin Dose 1 UNIT; Start 07/01/18 at 11:50 Miscellaneous Information 1 ea NOTE XX ; Start 07/01/18 at 11:30 Glucose (Glutose) 15 gm Q15M PRN PO DECREASED GLUCOSE; Start 07/01/18 at 11:30 Glucose (Glutose) 22.5 gm Q15M PRN PO DECREASED GLUCOSE; Start 07/01/18 at 11:30 Dextrose (D50w Syringe) 25 ml Q15M PRN IV DECREASED GLUCOSE; Start 07/01/18 at 11:30 Dextrose (D50w Syringe) 50 ml Q15M PRN IV DECREASED GLUCOSE; Start 07/01/18 at 11:30 Glucagon (Glucagen) 1 mg Q15M PRN IM DECREASED GLUCOSE; Start 07/01/18 at 11:30 Glucose (Glutose) 15 gm Q15M PRN BUCCAL DECREASED GLUCOSE; Start 07/01/18 at 11:30 Diphenhydramine HCl (Benadryl) 25 mg Q6H PRN PO ITCHING; Start 07/02/18 at 12:00 Hydralazine HCl (Apresoline) 10 mg Q6H PRN IV ELEVATED BLOOD PRESSURE Last administered on 07/04/18at 15:45; Admin Dose 10 MG; Start 07/02/18 at 16:30 Ceftriaxone Sodium 50 ml @ 100 mls/hr Q24H IVPB Last administered on 07/05/18at 10:35; Admin Dose 100 MLS/HR; Start 07/03/18 at 10:30; Stop 07/15/18 at 10:29 IV Flush (NS 10 ml) 10 ml Q12 IV Last administered on 07/05/18at 08:52; Admin Dose 10 ML; Start 07/03/18 at 21:00 Lisinopril (Zestril) 20 mg DAILY PO Last administered on 07/05/18at 08:53; Admin Dose 20 MG; Start 07/05/18 at 09:00 ERICKA DALEY MD Jul 05, 2018 13:32
[2018-07-05 14:00] VITALS: BP 152/69; PULSE 74; RESP 17
[2018-07-05 20:00] VITALS: BP 159/60; PULSE 66; RESP 18
[2018-07-06] MEDS: hydrALAzine 20 MG INJ IV PRN (00:21)
[2018-07-06 00:23] VITALS: BP 162/70; PULSE 66
[2018-07-06 02:00] VITALS: BP 130/60; PULSE 72; RESP 17
[2018-07-06] MEDS: ACCU-CHEK XX SCH (02:40)
[2018-07-06 07:50] VITALS: BP 125/60; PULSE 70; RESP 18
[2018-07-06] MEDS: INSULIN ASPART [NOVOLOG] 3 ML PEN SC SCH ×4 (08:00→20:29)
[2018-07-06] MEDS: LISINOPRIL 20 MG TAB PO SCH (10:04)
[2018-07-06] MEDS: ASPIRIN 81 MG TAB PO SCH (10:05)
[2018-07-06] MEDS: ENOXAPARIN 40 MG/0.4 ML SYG SC SCH (10:10)
[2018-07-06] MEDS: CEFTRIAXONE 1 GM/50 ML (PMX) 50 ML IVPB SCH (10:23)
[2018-07-06 14:08] VITALS: BP 138/63; PULSE 71; RESP 18
--- NOTE | 2018-07-06 15:39 | CONS ---
Assessment/Plan Assessment/Plan Hospital Course (Demo Recall) Patient is alert feels good denies pain no dysuria no hematuria. WBC 8.2 no shift no bands BUN 12 creatinine 0.59 Microbiology: Blood culture on admission grew E. coli Antimicrobials: Patient is on Rocephin Allergy: Levaquin Indwelling: PICC line Physical examination: Well-developed elderly woman who is alert in no distress. Head atraumatic normocephalic sclera nonicteric vehicle mucosa pink neck is supple chest rise symmetrical breath sounds clear heart S1-S2 abdomen soft bowel sounds present extremities without cyanosis Assessment: 1. Status post sepsis present on admission 2. E. coli bacteremia secondary to urinary tract infection 3. Diabetes 4. Obesity Plan: Patient remains stable completing 14 days of antibiotic course, follow repeat blood cultures Consultation Date/Type/Reason Admit Date/Time Jun 30, 2018 at 22:54 Initial Consult Date Type of Consult id Date/Time of Note DATE: 07/06/18 TIME: 15:38 Exam/Review of Systems Exam Vitals Vital Signs Date Temp Pulse Resp B/P (MAP) Pulse Ox O2 O2 Flow FiO2 Time Delivery Rate 07/06/18 97.9 71 18 138/63 99 14:08 (88) 07/06/18 Room Air 07:50 Intake and Output 07/05/18 07/05/18 07/06/18 1515:00 23:00 07:00 IntakeIntake Total 50 ml 800 ml BalanceBalance 50 ml 800 ml Results Result Diagram: 07/06/18 0748 07/06/18 0748 Results 24hrs Laboratory Tests Test 07/05/18 16:59 07/05/18 20:29 07/06/18 02:39 07/06/18 07:48 Bedside Glucose 130 188 122 White Blood Count 8.2 Red Blood Count 3.22 L Hemoglobin 9.7 L Hematocrit 29.1 L Mean Corpuscular 90.4 Volume Mean Corpuscular 30.1 Hemoglobin Mean Corpuscular 33.3 Hemoglobin Concent Red Cell 12.8 Distribution Width Platelet Count 278 Mean Platelet Volume 10.4 Immature 0.500 H Granulocytes % Neutrophils % Segmented 54 Neutrophils % (Manual) Band Neutrophils % 1 (Manual) Lymphocytes % Lymphocytes % 31 (Manual) Reactive Lymphocytes 5 H % (Manual) Monocytes % Monocytes % (Manual) 7 Eosinophils % Eosinophils % 2 (Manual) Basophils % Nucleated Red Blood 0.0 Cells % Immature 0.040 H Granulocytes # Neutrophils # Neutrophils # 4.4 (Manual) Band Neutrophils # 0.0 Lymphocytes (Manual) 2.5 Lymphocytes # Reactive Lymphocytes 0.4 H # Monocytes # Monocytes # (Manual) 0.5 Eosinophils # Basophils # Nucleated Red Blood Cells # Platelet Estimate NORMAL Polychromasia 2+ Sodium Level 139 Potassium Level 3.9 Chloride Level 102 Carbon Dioxide Level 29 Anion Gap 8 Blood Urea Nitrogen 12 Creatinine 0.59 Est Glomerular > 60 Filtrat Rate mL/min Glucose Level 124 Calcium Level 9.0 Phosphorus Level 4.1 Magnesium Level 1.8 Test 07/06/18 08:06 07/06/18 12:00 Bedside Glucose 119 162 Medications Medication Current Medications IV Flush (NS 3 ml) 3 ml PER PROTOCOL IV ; Start 07/01/18 at 05:00 Ondansetron HCl (Zofran Inj) 4 mg Q6H PRN IV NAUSEA/VOMITING; Start 07/01/18 at 05:00 Acetaminophen (Tylenol Tab) 650 mg Q6H PRN PO .PAIN 1-3 OR TEMP Last administe red on 07/03/18at 20:32; Admin Dose 650 MG; Start 07/01/18 at 05:00 Enoxaparin Sodium (Lovenox) 40 mg DAILY SC Last administered on 07/06/18at 10:10; Admin Dose 40 MG; Start 07/01/18 at 09:00 Albuterol/ Ipratropium (Duoneb) 3 ml Q2H RESP THERAPY PRN HHN SHORTNESS OF BREATH; Start 07/01/18 at 05:00 Aspirin (Aspirin) 81 mg DAILY PO Last administered on 07/06/18at 10:05; Admin Dose 81 MG; Start 07/01/18 at 09:00 Diagnostic Test (Pha) (Accu-Chek) 1 ea 02 XX Last administered on 07/06/18at 02:40; Admin Dose 1 EA; Start 07/02/18 at 02:00 Insulin Aspart (Novolog Insulin Pen) NOVOLOG *MILD* ALGORITHM WITH MEALS BEDTIME SC Last administered on 07/06/18at 12:24; Admin Dose 1 UNIT; Start 07/01/18 at 11:50 Miscellaneous Information 1 ea NOTE XX ; Start 07/01/18 at 11:30 Glucose (Glutose) 15 gm Q15M PRN PO DECREASED GLUCOSE; Start 07/01/18 at 11:30 Glucose (Glutose) 22.5 gm Q15M PRN PO DECREASED GLUCOSE; Start 07/01/18 at 11:30 Dextrose (D50w Syringe) 25 ml Q15M PRN IV DECREASED GLUCOSE; Start 07/01/18 at 11:30 Dextrose (D50w Syringe) 50 ml Q15M PRN IV DECREASED GLUCOSE; Start 07/01/18 at 11:30 Glucagon (Glucagen) 1 mg Q15M PRN IM DECREASED GLUCOSE; Start 07/01/18 at 11:30 Glucose (Glutose) 15 gm Q15M PRN BUCCAL DECREASED GLUCOSE; Start 07/01/18 at 11:30 Diphenhydramine HCl (Benadryl) 25 mg Q6H PRN PO ITCHING; Start 07/02/18 at 12:00 Hydralazine HCl (Apresoline) 10 mg Q6H PRN IV ELEVATED BLOOD PRESSURE Last administered on 07/06/18at 00:21; Admin Dose 10 MG; Start 07/02/18 at 16:30 Ceftriaxone Sodium 50 ml @ 100 mls/hr Q24H IVPB Last administered on 07/06/18at 10:23; Admin Dose 100 MLS/HR; Start 07/03/18 at 10:30; Stop 07/15/18 at 10:29 IV Flush (NS 10 ml) 10 ml Q12 IV Last administered on 07/06/18at 10:24; Admin Dose 10 ML; Start 07/03/18 at 21:00 Lisinopril (Zestril) 20 mg DAILY PO Last administered on 07/06/18at 10:04; Admin Dose 20 MG; Start 07/05/18 at 09:00 GHAZAL DOYLE NP Jul 06, 2018 15:39
--- NOTE | 2018-07-06 17:30 | PN ---
Date/Time of Note Date/Time of Note DATE: 07/06/18 TIME: 17:29 Assessment/Plan VTE Prophylaxis Risk score (from Nsg)>0 risk: 2 SCD applied (from Nsg): Yes Pharmacological prophylaxis: NA/contraindicated Pharm contraindication: low risk/ambulating Lines/Catheters IV Catheter Type (from Nrsg): PICC Line Central line still needed: Yes Urinary Cath still in place: No Assessment/Plan Assessment/Plan 68 yo obese woman presents with fever and chills, found to have E Coli bacteremia from unclear source. # Bacteremia - May be from UTI. Patient reports mild burning dysuria on admission, fever and chills. - CXR with mild opacity, but no productive cough to suggest pneumonia. - 2/2 bottles E Coli. - Per ID recommendation, she needs IV ceftriaxone. - But insurance will not pay for IV antibiotics at home so will keep patient here for now. # Hypertension: - Uncontrolled blood pressure. On lisinopril at home; will double dose. # Diabetes: A1c was 6.5 -Monitor, continue sliding scale insulin while in-house -Holding home metformin for now # Right shoulder pain: Patient mentioned about arthritis. She has full range of motion and there is no obvious deformity. -Pain management for now, monitor - PT and OT Dispo: Medically stable for discharge on IV ceftriaxone. Result Diagram: 07/06/18 0748 07/06/1848 Subjective 24 Hr Interval Summary Free Text/Dictation No acute overnight events. Patient resting comfortably in bed. Exam/Review of Systems Exam Vitals Vital Signs Date Temp Pulse Resp B/P (MAP) Pulse Ox O2 O2 Flow FiO2 Time Delivery Rate 07/06/18 97.9 71 18 138/63 99 14:08 (88) 07/06/18 Room Air 07:50 Intake and Output 07/05/18 07/05/18 07/06/18 1515:00 23:00 07:00 IntakeIntake Total 50 ml 800 ml BalanceBalance 50 ml 800 ml Exam Constitutional: Obese woman lying in bed, no acute distress Head: normocephalic, atraumatic Eyes: EOMI, PERRL Respiratory: Clear lung sounds bilaterally. Cardiovascular: S1, S2 heard Gastrointestinal: soft Musculoskeletal: still having some mild right shoulder pain Extremities: normal pulses Results Results 24hrs Laboratory Tests Test 07/05/18 20:29 07/06/18 02:39 07/06/18 07:48 07/06/18 08:06 Bedside Glucose 188 122 119 White Blood Count 8.2 Red Blood Count 3.22 L Hemoglobin 9.7 L Hematocrit 29.1 L Mean Corpuscular 90.4 Volume Mean Corpuscular 30.1 Hemoglobin Mean Corpuscular 33.3 Hemoglobin Concent Red Cell 12.8 Distribution Width Platelet Count 278 Mean Platelet Volume 10.4 Immature 0.500 H Granulocytes % Neutrophils % Segmented 54 Neutrophils % (Manual) Band Neutrophils % 1 (Manual) Lymphocytes % Lymphocytes % 31 (Manual) Reactive Lymphocytes 5 H % (Manual) Monocytes % Monocytes % (Manual) 7 Eosinophils % Eosinophils % 2 (Manual) Basophils % Nucleated Red Blood 0.0 Cells % Immature 0.040 H Granulocytes # Neutrophils # Neutrophils # 4.4 (Manual) Band Neutrophils # 0.0 Lymphocytes (Manual) 2.5 Lymphocytes # Reactive Lymphocytes 0.4 H # Monocytes # Monocytes # (Manual) 0.5 Eosinophils # Basophils # Nucleated Red Blood Cells # Platelet Estimate NORMAL Polychromasia 2+ Sodium Level 139 Potassium Level 3.9 Chloride Level 102 Carbon Dioxide Level 29 Anion Gap 8 Blood Urea Nitrogen 12 Creatinine 0.59 Est Glomerular > 60 Filtrat Rate mL/min Glucose Level 124 Calcium Level 9.0 Phosphorus Level 4.1 Magnesium Level 1.8 Test 07/06/18 12:00 Bedside Glucose 162 Medications Medication Current Medications IV Flush (NS 3 ml) 3 ml PER PROTOCOL IV ; Start 07/01/18 at 05:00 Ondansetron HCl (Zofran Inj) 4 mg Q6H PRN IV NAUSEA/VOMITING; Start 07/01/18 at 05:00 Acetaminophen (Tylenol Tab) 650 mg Q6H PRN PO .PAIN 1-3 OR TEMP Last administered on 07/03/18at 20:32; Admin Dose 650 MG; Start 07/01/18 at 05:00 Enoxaparin Sodium (Lovenox) 40 mg DAILY SC Last administered on 07/06/18at 10:10; Admin Dose 40 MG; Start 07/01/18 at 09:00 Albuterol/ Ipratropium (Duoneb) 3 ml Q2H RESP THERAPY PRN HHN SHORTNESS OF BREATH; Start 07/01/18 at 05:00 Aspirin (Aspirin) 81 mg DAILY PO Last administered on 07/06/18at 10:05; Admin Dose 81 MG; Start 07/01/18 at 09:00 Diagnostic Test (Pha) (Accu-Chek) 1 ea 02 XX Last administered on 07/06/18at 02:40; Admin Dose 1 EA; Start 07/02/18 at 02:00 Insulin Aspart (Novolog Insulin Pen) NOVOLOG *MILD* ALGORITHM WITH MEALS BEDTIME SC Last administered on 07/06/18at 12:24; Admin Dose 1 UNIT; Start 07/01/18 at 11:50 Miscellaneous Information 1 ea NOTE XX ; Start 07/01/18 at 11:30 Glucose (Glutose) 15 gm Q15M PRN PO DECREASED GLUCOSE; Start 07/01/18 at 11:30 Glucose (Glutose) 22.5 gm Q15M PRN PO DECREASED GLUCOSE; Start 07/01/18 at 11:30 Dextrose (D50w Syringe) 25 ml Q15M PRN IV DECREASED GLUCOSE; Start 07/01/18 at 11:30 Dextrose (D50w Syringe) 50 ml Q15M PRN IV DECREASED GLUCOSE; Start 07/01/18 at 11:30 Glucagon (Glucagen) 1 mg Q15M PRN IM DECREASED GLUCOSE; Start 07/01/18 at 11:30 Glucose (Glutose) 15 gm Q15M PRN BUCCAL DECREASED GLUCOSE; Start 07/01/18 at 11:30 Diphenhydramine HCl (Benadryl) 25 mg Q6H PRN PO ITCHING; Start 07/02/18 at 12:00 Hydralazine HCl (Apresoline) 10 mg Q6H PRN IV ELEVATED BLOOD PRESSURE Last administered on 07/06/18at 00:21; Admin Dose 10 MG; Start 07/02/18 at 16:30 Ceftriaxone Sodium 50 ml @ 100 mls/hr Q24H IVPB Last administered on 07/06/18at 10:23; Admin Dose 100 MLS/HR; Start 07/03/18 at 10:30; Stop 07/15/18 at 10:29 IV Flush (NS 10 ml) 10 ml Q12 IV Last administered on 07/06/18at 10:24; Admin Dose 10 ML; Start 07/03/18 at 21:00 Lisinopril (Zestril) 20 mg DAILY PO Last administered on 07/06/18at 10:04; Admin Dose 20 MG; Start 07/05/18 at 09:00 ERICKA DALEY MD Jul 06, 2018 17:30
[2018-07-06 19:58] VITALS: BP 132/60; PULSE 65; RESP 20
[2018-07-07] MEDS: ACCU-CHEK XX SCH (01:06)
[2018-07-07 02:09] VITALS: BP 124/80; PULSE 78; RESP 20
[2018-07-07 08:08] VITALS: BP 144/64; PULSE 60; RESP 17
[2018-07-07] MEDS: ASPIRIN 81 MG TAB PO SCH (08:43)
[2018-07-07] MEDS: INSULIN ASPART [NOVOLOG] 3 ML PEN SC SCH ×4 (08:43→21:16)
[2018-07-07] MEDS: ENOXAPARIN 40 MG/0.4 ML SYG SC SCH (08:43)
[2018-07-07] MEDS: LISINOPRIL 20 MG TAB PO SCH (08:44)
[2018-07-07] MEDS: CEFTRIAXONE 1 GM/50 ML (PMX) 50 ML IVPB SCH (10:48)
--- NOTE | 2018-07-07 11:54 | CONS ---
Assessment/Plan Assessment/Plan Hospital Course (Demo Recall) No events, alert and feels good Microbiology: Blood culture on admission grew E. coli Antimicrobials: Rocephin Allergy: Levaquin Indwelling: PICC line Physical examination: Well-developed elderly woman who is alert in no distress. Head atraumatic normocephalic sclera nonicteric vehicle mucosa pink neck is supple chest rise symmetrical breath sounds clear heart S1-S2 abdomen soft bowel sounds present extremities without cyanosis Assessment: 1. Status post sepsis present on admission 2. E. coli bacteremia secondary to urinary tract infection 3. Diabetes 4. Obesity Plan: Patient remains stable, completing 14 days of antibiotic course Consultation Date/Type/Reason Admit Date/Time Jun 30, 2018 at 22:54 Initial Consult Date Type of Consult id Date/Time of Note DATE: 07/07/18 TIME: 11:53 Exam/Review of Systems Exam Vitals Vital Signs Date Temp Pulse Resp B/P (MAP) Pulse Ox O2 O2 Flow FiO2 Time Delivery Rate 07/07/18 98.0 60 17 144/64 94 08:08 (90) 07/06/18 Room Air 07:50 Intake and Output 07/06/18 07/06/18 07/07/18 1414:59 22:59 06:59 IntakeIntake Total 50 ml 1200 ml 650 ml BalanceBalance 50 ml 1200 ml 650 ml Results Result Diagram: 07/06/18 0748 07/06/18 0748 Results 24hrs Laboratory Tests Test 07/06/18 12:00 07/06/18 17:47 07/06/18 20:25 07/07/18 01:06 Bedside Glucose 162 122 208 137 Test 07/07/18 08:02 Bedside Glucose 143 Medications Medication Current Medications IV Flush (NS 3 ml) 3 ml PER PROTOCOL IV ; Start 07/01/18 at 05:00 Ondansetron HCl (Zofran Inj) 4 mg Q6H PRN IV NAUSEA/VOMITING; Start 07/01/18 at 05:00 Acetaminophen (Tylenol Tab) 650 mg Q6H PRN PO .PAIN 1-3 OR TEMP Last administered on 07/03/18at 20:32; Admin Dose 650 MG; Start 07/01/18 at 05:00 Enoxaparin Sodium (Lovenox) 40 mg DAILY SC Last administered on 07/07/18at 08:43; Admin Dose 40 MG; Start 07/01/18 at 09:00 Albuterol/ Ipratropium (Duoneb) 3 ml Q2H RESP THERAPY PRN HHN SHORTNESS OF BREATH; Start 07/01/18 at 05:00 Aspirin (Aspirin) 81 mg DAILY PO Last administered on 07/07/18at 08:43; Admin Dose 81 MG; Start 07/01/18 at 09:00 Diagnostic Test (Pha) (Accu-Chek) 1 ea 02 XX Last administered on 07/07/18at 01:06; Admin Dose 1 EA; Start 07/02/18 at 02:00 Insulin Aspart (Novolog Insulin Pen) NOVOLOG *MILD* ALGORITHM WITH MEALS BEDTIME SC Last administered on 07/07/18at 08:43; Admin Dose 1 UNIT; Start 07/01/18 at 11:50 Miscellaneous Information 1 ea NOTE XX ; Start 07/01/18 at 11:30 Glucose (Glutose) 15 gm Q15M PRN PO DECREASED GLUCOSE; Start 07/01/18 at 11:30 Glucose (Glutose) 22.5 gm Q15M PRN PO DECREASED GLUCOSE; Start 07/01/18 at 11:30 Dextrose (D50w Syringe) 25 ml Q15M PRN IV DECREASED GLUCOSE; Start 07/01/18 at 11:30 Dextrose (D50w Syringe) 50 ml Q15M PRN IV DECREASED GLUCOSE; Start 07/01/18 at 11:30 Glucagon (Glucagen) 1 mg Q15M PRN IM DECREASED GLUCOSE; Start 07/01/18 at 11:30 Glucose (Glutose) 15 gm Q15M PRN BUCCAL DECREASED GLUCOSE; Start 07/01/18 at 11:30 Diphenhydramine HCl (Benadryl) 25 mg Q6H PRN PO ITCHING; Start 07/02/18 at 12:00 Hydralazine HCl (Apresoline) 10 mg Q6H PRN IV ELEVATED BLOOD PRESSURE Last administered on 07/06/18at 00:21; Admin Dose 10 MG; Start 07/02/18 at 16:30 Ceftriaxone Sodium 50 ml @ 100 mls/hr Q24H IVPB Last administered on 07/07/18at 10:48; Admin Dose 100 MLS/HR; Start 07/03/18 at 10:30; Stop 07/15/18 at 10:29 IV Flush (NS 10 ml) 10 ml Q12 IV Last administered on 07/07/18at 08:44; Admin Dose 10 ML; Start 07/03/18 at 21:00 Lisinopril (Zestril) 20 mg DAILY PO Last administered on 07/07/18at 08:44; Admin Dose 20 MG; Start 07/05/18 at 09:00 GHAZAL DOYLE NP Jul 07, 2018 11:54
--- NOTE | 2018-07-07 14:22 | PN ---
Date/Time of Note Date/Time of Note DATE: 07/07/18 TIME: 14:21 Assessment/Plan VTE Prophylaxis Risk score (from Ns)>0 risk: 5 SCD applied (from Ns): No SCD contraindicated: low risk/ambulating Pharmacological prophylaxis: NA/contraindicated Pharm contraindication: low risk/ambulating Lines/Catheters [facility] P[facility] Line Central line still needed: Yes Urinary Cath still in place: No Assessment/Plan Assessment/Plan 68 yo obese woman presents with fever and chills, found to have E Coli bacteremia from unclear source. # Bacteremia - May be from UTI. Patient reports mild burning dysuria on admission, fever and chills. - CXR with mild opacity, but no productive cough to suggest pneumonia. - 2/2 bottles E Coli. - Per ID recommendation, she needs IV ceftriaxone. - But insurance will not pay for IV antibiotics at home so will keep patient here for now. # Hypertension: - Uncontrolled blood pressure. On lisinopril at home; will double dose. # Diabetes: A1c was 6.5 -Monitor, continue sliding scale insulin while in-house -Holding home metformin for now # Right shoulder pain: Patient mentioned about arthritis. She has full range of motion and there is no obvious deformity. -Pain management for now, monitor - PT and OT Dispo: Medically stable for discharge on IV ceftriaxone. Result Diagram: 07/06/18 0748 07/06/18 0748 Subjective 24 Hr Interval Summary Free Text/Dictation No acute overnight events. Patient feeling fine. Exam/Review of Systems Exam Vitals Vital Signs Date Temp Pulse Resp B/P (MAP) Pulse Ox O2 O2 Flow FiO2 Time Delivery Rate 07/07/18 98.0 60 17 144/64 94 08:08 (90) 07/06/18 Room Air 07:50 Intake and Output 07/06/18 07/06/18 07/07/18 1515:00 23:00 07:00 IntakeIntake Total 50 ml 1200 ml 650 ml BalanceBalance 50 ml 1200 ml 650 ml Exam Constitutional: Obese woman lying in bed, no acute distress Head: normocephalic, atraumatic Eyes: EOMI, PERRL Respiratory: Clear lung sounds bilaterally. Cardiovascular: S1, S2 heard Gastrointestinal: soft Musculoskeletal: still having some mild right shoulder pain Extremities: normal pulses Results Results 24hrs Laboratory Tests Test 07/06/18 17:47 07/06/18 20:25 07/07/18 01:06 07/07/18 08:02 Bedside Glucose 122 208 137 143 Test 07/07/18 11:51 Bedside Glucose 108 Medications Medication Current Medications IV Flush (NS 3 ml) 3 ml PER PROTOCOL IV ; Start 07/01/18 at 05:00 Ondansetron HCl (Zofran Inj) 4 mg Q6H PRN IV NAUSEA/VOMITING; Start 07/01/18 at 05:00 Acetaminophen (Tylenol Tab) 650 mg Q6H PRN PO .PAIN 1-3 OR TEMP Last administered on 07/03/18at 20:32; Admin Dose 650 MG; Start 07/01/18 at 05:00 Enoxaparin Sodium (Lovenox) 40 mg DAILY SC Last administered on 07/07/18at 08:43; Admin Dose 40 MG; Start 07/01/18 at 09:00 Albuterol/ Ipratropium (Duoneb) 3 ml Q2H RESP THERAPY PRN HHN SHORTNESS OF BREATH; Start 07/01/18 at 05:00 Aspirin (Aspirin) 81 mg DAILY PO Last administered on 07/07/18at 08:43; Admin Dose 81 MG; Start 07/01/18 at 09:00 Diagnostic Test (Pha) (Accu-Chek) 1 ea 02 XX Last administered on 07/07/18at 01:06; Admin Dose 1 EA; Start 07/02/18 at 02:00 Insulin Aspart (Novolog Insulin Pen) NOVOLOG *MILD* ALGORITHM WITH MEALS BEDTIME SC Last administered on 07/07/18at 08:43; Admin Dose 1 UNIT; Start 07/01/18 at 11:50 Miscellaneous Information 1 ea NOTE XX ; Start 07/01/18 at 11:30 Glucose (Glutose) 15 gm Q15M PRN PO DECREASED GLUCOSE; Start 07/01/18 at 11:30 Glucose (Glutose) 22.5 gm Q15M PRN PO DECREASED GLUCOSE; Start 07/01/18 at 11:30 Dextrose (D50w Syringe) 25 ml Q15M PRN IV DECREASED GLUCOSE; Start 07/01/18 at 11:30 Dextrose (D50w Syringe) 50 ml Q15M PRN IV DECREASED GLUCOSE; Start 07/01/18 at 11:30 Glucagon (Glucagen) 1 mg Q15M PRN IM DECREASED GLUCOSE; Start 07/01/18 at 11:30 Glucose (Glutose) 15 gm Q15M PRN BUCCAL DECREASED GLUCOSE; Start 07/01/18 at 11:30 Diphenhydramine HCl (Benadryl) 25 mg Q6H PRN PO ITCHING; Start 07/02/18 at 12:00 Hydralazine HCl (Apresoline) 10 mg Q6H PRN IV ELEVATED BLOOD PRESSURE Last administered on 07/06/18at 00:21; Admin Dose 10 MG; Start 07/02/18 at 16:30 Ceftriaxone Sodium 50 ml @ 100 mls/hr Q24H IVPB Last administered on 07/07/18at 10:48; Admin Dose 100 MLS/HR; Start 07/03/18 at 10:30; Stop 07/15/18 at 10:29 IV Flush (NS 10 ml) 10 ml Q12 IV Last administered on 07/07/18at 08:44; Admin Dose 10 ML; Start 07/03/18 at 21:00 Lisinopril (Zestril) 20 mg DAILY PO Last administered on 07/07/18at 08:44; Admin Dose 20 MG; Start 07/05/18 at 09:00 ERICKA DALEY MD Jul 07, 2018 14:22
[2018-07-07 14:39] VITALS: BP 113/57; PULSE 68; RESP 18
[2018-07-07 20:22] VITALS: BP 113/72; PULSE 62; RESP 20
[2018-07-08] MEDS: ACCU-CHEK XX SCH (02:00)
[2018-07-08 02:35] VITALS: BP 112/53; PULSE 64; RESP 18
[2018-07-08] MEDS: INSULIN ASPART [NOVOLOG] 3 ML PEN SC SCH ×3 (08:00→16:59)
[2018-07-08 08:08] VITALS: BP 143/65; PULSE 59; RESP 18
[2018-07-08] MEDS: LISINOPRIL 20 MG TAB PO SCH (08:17)
[2018-07-08] MEDS: ASPIRIN 81 MG TAB PO SCH (08:17)
[2018-07-08] MEDS: ENOXAPARIN 40 MG/0.4 ML SYG SC SCH (08:19)
[2018-07-08] MEDS: CEFTRIAXONE 1 GM/50 ML (PMX) 50 ML IVPB SCH (10:30)
--- NOTE | 2018-07-08 13:21 | CONS ---
Assessment/Plan Assessment/Plan Hospital Course (Demo Recall) Alert feels good denies pain no fevers overnight family at bedside Microbiology: Blood culture on admission grew E. coli Antimicrobials: Rocephin Allergy: Levaquin Indwelling: PICC line Physical examination: Well-developed elderly woman who is alert in no distress. Head atraumatic normocephalic sclera nonicteric vehicle mucosa pink neck is supple chest rise symmetrical breath sounds clear heart S1-S2 abdomen soft bowel sounds present extremities without cyanosis Assessment: 1. Status post sepsis present on admission 2. E. coli bacteremia secondary to urinary tract infection 3. Diabetes 4. Obesity Plan: Patient remains stable, continue abx==> last dose 07/13 Consultation Date/Type/Reason Admit Date/Time Jun 30, 2018 at 22:54 Initial Consult Date Type of Consult id Date/Time of Note DATE: 07/08/18 TIME: 13:20 Exam/Review of Systems Exam Vitals Vital Signs Date Temp Pulse Resp B/P (MAP) Pulse Ox O2 O2 Flow FiO2 Time Delivery Rate 07/08/18 98.3 59 18 143/65 97 Room Air 08:08 (91) Intake and Output 07/07/18 07/07/18 07/08/18 1515:00 23:00 07:00 IntakeIntake Total 480 ml 150 ml 320 ml BalanceBalance 480 ml 150 ml 320 ml Results Result Diagram: 07/06/18 0748 07/06/18 0748 Results 24hrs Laboratory Tests Test 07/07/18 17:22 07/07/18 21:15 07/08/18 01:18 07/08/18 08:09 Bedside Glucose 159 182 138 131 Test 07/08/18 11:58 Bedside Glucose 180 Medications Medication Current Medications IV Flush (NS 3 ml) 3 ml PER PROTOCOL IV ; Start 07/01/18 at 05:00 Ondansetron HCl (Zofran Inj) 4 mg Q6H PRN IV NAUSEA/VOMITING; Start 07/01/18 at 05:00 Acetaminophen (Tylenol Tab) 650 mg Q6H PRN PO .PAIN 1-3 OR TEMP Last administered on 07/03/18at 20:32; Admin Dose 650 MG; Start 07/01/18 at 05:00 Enoxaparin Sodium (Lovenox) 40 mg DAILY SC Last administered on 07/08/18at 08:19; Admin Dose 40 MG; Start 07/01/18 at 09:00 Albuterol/ Ipratropium (Duoneb) 3 ml Q2H RESP THERAPY PRN HHN SHORTNESS OF BREATH; Start 07/01/18 at 05:00 Aspirin (Aspirin) 81 mg DAILY PO Last administered on 07/08/18at 08:17; Admin Dose 81 MG; Start 07/01/18 at 09:00 Diagnostic Test (Pha) (Accu-Chek) 1 ea 02 XX Last administered on 07/07/18at 01:06; Admin Dose 1 EA; Start 07/02/18 at 02:00 Insulin Aspart (Novolog Insulin Pen) NOVOLOG *MILD* ALGORITHM WITH MEALS BEDTIME SC Last administered on 07/08/18at 12:04; Admin Dose 1 UNIT; Start 07/01/18 at 11:50 Miscellaneous Information 1 ea NOTE XX ; Start 07/01/18 at 11:30 Glucose (Glutose) 15 gm Q15M PRN PO DECREASED GLUCOSE; Start 07/01/18 at 11:30 Glucose (Glutose) 22.5 gm Q15M PRN PO DECREASED GLUCOSE; Start 07/01/18 at 11:30 Dextrose (D50w Syringe) 25 ml Q15M PRN IV DECREASED GLUCOSE; Start 07/01/18 at 11:30 Dextrose (D50w Syringe) 50 ml Q15M PRN IV DECREASED GLUCOSE; Start 07/01/18 at 11:30 Glucagon (Glucagen) 1 mg Q15M PRN IM DECREASED GLUCOSE; Start 07/01/18 at 11:30 Glucose (Glutose) 15 gm Q15M PRN BUCCAL DECREASED GLUCOSE; Start 07/01/18 at 11:30 Diphenhydramine HCl (Benadryl) 25 mg Q6H PRN PO ITCHING; Start 07/02/18 at 12:00 Hydralazine HCl (Apresoline) 10 mg Q6H PRN IV ELEVATED BLOOD PRESSURE Last administered on 07/06/18at 00:21; Admin Dose 10 MG; Start 07/02/18 at 16:30 Ceftriaxone Sodium 50 ml @ 100 mls/hr Q24H IVPB Last administered on 07/08/18at 10:30; Admin Dose 100 MLS/HR; Start 07/03/18 at 10:30; Stop 07/15/18 at 10:29 IV Flush (NS 10 ml) 10 ml Q12 IV Last administered on 07/08/18at 10:31; Admin Dose 10 ML; Start 07/03/18 at 21:00 Lisinopril (Zestril) 20 mg DAILY PO Last administered on 07/08/18at 08:17; Admin Dose 20 MG; Start 07/05/18 at 09:00 GHAZAL DOYLE NP Jul 08, 2018 13:21
[2018-07-08 14:30] VITALS: BP 136/68; PULSE 64; RESP 18
--- NOTE | 2018-07-08 15:26 | PN ---
Date/Time of Note Date/Time of Note DATE: 07/08/18 TIME: 15:25 Assessment/Plan VTE Prophylaxis Risk score (from Nsg)>0 risk: 5 SCD applied (from Nsg): Yes Pharmacological prophylaxis: NA/contraindicated Pharm contraindication: low risk/ambulating Lines/Catheters IV Catheter Type (from Nrsg): PICC Line Central line still needed: Yes Urinary Cath still in place: No Assessment/Plan Assessment/Plan 68 yo obese woman presents with fever and chills, found to have E Coli bacteremia from unclear source. # Bacteremia - May be from UTI. Patient reports mild burning dysuria on admission, fever and chills. - CXR with mild opacity, but no productive cough to suggest pneumonia. - 2/2 bottles E Coli. - Per ID recommendation, she needs IV ceftriaxone. - But insurance will not pay for IV antibiotics at home so will keep patient here for now. # Hypertension: - Uncontrolled blood pressure. On lisinopril at home; will double dose. # Diabetes: A1c was 6.5 -Monitor, continue sliding scale insulin while in-house -Holding home metformin for now # Right shoulder pain: Patient mentioned about arthritis. She has full range of motion and there is no obvious deformity. -Pain management for now, monitor - PT and OT Dispo: Medically stable for discharge on IV ceftriaxone. Waiting for watch case polisher to arrange home health. Result Diagram: 07/06/18 0748 07/06/18 0748 Subjective 24 Hr Interval Summary Free Text/Dictation No acute overnight events. Exam/Review of Systems Exam Vitals Vital Signs Date Temp Pulse Resp B/P (MAP) Pulse Ox O2 O2 Flow FiO2 Time Delivery Rate 07/08/18 98.3 59 18 143/65 97 Room Air 08:08 (91) Intake and Output 07/07/18 07/07/18 07/08/18 1414:59 22:59 06:59 IntakeIntake Total 480 ml 150 ml 320 ml BalanceBalance 480 ml 150 ml 320 ml Exam Constitutional: Obese woman lying in bed, no acute distress Head: normocephalic, atraumatic Eyes: EOMI, PERRL Respiratory: Clear lung sounds bilaterally. Cardiovascular: S1, S2 heard Gastrointestinal: soft Musculoskeletal: still having some mild right shoulder pain Extremities: normal pulses Results Results 24hrs Laboratory Tests Test 07/07/18 17:22 07/07/18 21:15 07/08/18 01:18 07/08/18 08:09 Bedside Glucose 159 182 138 131 Test 07/08/18 11:58 Bedside Glucose 180 Medications Medication Current Medications IV Flush (NS 3 ml) 3 ml PER PROTOCOL IV ; Start 07/01/18 at 05:00 Ondansetron HCl (Zofran Inj) 4 mg Q6H PRN IV NAUSEA/VOMITING; Start 07/01/18 at 05:00 Acetaminophen (Tylenol Tab) 650 mg Q6H PRN PO .PAIN 1-3 OR TEMP Last administered on 07/03/18at 20:32; Admin Dose 650 MG; Start 07/01/18 at 05:00 Enoxaparin Sodium (Lovenox) 40 mg DAILY SC Last administered on 07/08/18at 08:19; Admin Dose 40 MG; Start 07/01/18 at 09:00 Albuterol/ Ipratropium (Duoneb) 3 ml Q2H RESP THERAPY PRN HHN SHORTNESS OF BREATH; Start 07/01/18 at 05:00 Aspirin (Aspirin) 81 mg DAILY PO Last administered on 07/08/18at 08:17; Admin Dose 81 MG; Start 07/01/18 at 09:00 Diagnostic Test (Pha) (Accu-Chek) 1 ea 02 XX Last administered on 07/07/18at 01:06; Admin Dose 1 EA; Start 07/02/18 at 02:00 Insulin Aspart (Novolog Insulin Pen) NOVOLOG *MILD* ALGORITHM WITH MEALS BEDTIME SC Last administered on 07/08/18at 12:04; Admin Dose 1 UNIT; Start 07/01/18 at 11:50 Miscellaneous Information 1 ea NOTE XX ; Start 07/01/18 at 11:30 Glucose (Glutose) 15 gm Q15M PRN PO DECREASED GLUCOSE; Start 07/01/18 at 11:30 Glucose (Glutose) 22.5 gm Q15M PRN PO DECREASED GLUCOSE; Start 07/01/18 at 11:30 Dextrose (D50w Syringe) 25 ml Q15M PRN IV DECREASED GLUCOSE; Start 07/01/18 at 11:30 Dextrose (D50w Syringe) 50 ml Q15M PRN IV DECREASED GLUCOSE; Start 07/01/18 at 11:30 Glucagon (Glucagen) 1 mg Q15M PRN IM DECREASED GLUCOSE; Start 07/01/18 at 11:30 Glucose (Glutose) 15 gm Q15M PRN BUCCAL DECREASED GLUCOSE; Start 07/01/18 at 11 :30 Diphenhydramine HCl (Benadryl) 25 mg Q6H PRN PO ITCHING; Start 07/02/18 at 12:00 Hydralazine HCl (Apresoline) 10 mg Q6H PRN IV ELEVATED BLOOD PRESSURE Last administered on 07/06/18at 00:21; Admin Dose 10 MG; Start 07/02/18 at 16:30 Ceftriaxone Sodium 50 ml @ 100 mls/hr Q24H IVPB Last administered on 07/08/18at 10:30; Admin Dose 100 MLS/HR; Start 07/03/18 at 10:30; Stop 07/15/18 at 10:29 IV Flush (NS 10 ml) 10 ml Q12 IV Last administered on 07/08/18at 10:31; Admin Dose 10 ML; Start 07/03/18 at 21:00 Lisinopril (Zestril) 20 mg DAILY PO Last administered on 07/08/18at 08:17; Admin Dose 20 MG; Start 07/05/18 at 09:00 ERICKA DALEY MD Jul 08, 2018 15:25
--- NOTE | 2018-07-08 16:29 | PDOCDIS ---
Discharge Instructions DIAGNOSIS Discharge Diagnosis E Coli Bacteremia CONDITION [id number] Patient Condition: [id number] Good HOME CARE INSTRUCTIONS: [id number] Diet Instructions: [id number] Regular ACTIVITY: [id number] Activity Restrictions: [id number] No Restrictions FOLLOW UP/APPOINTMENTS Follow-up Plan 1. Continue recieving daily IV antibiotics as prescribed. The last day is July 13. 2. Take all other medications as prescribed. 3. See your primary care doctor in 1-2 weeks ERICKA DALEY MD Jul 08, 2018 16:29
--- NOTE | 2018-07-08 19:49 | DS ---
Date/Time of Note Date/Time of Note DATE: 07/08/18 TIME: 19:47 Discharge Summary Admission/Discharge Info Admit Date/Time Jun 30, 2018 at 22:54 Discharge Date/Time Jul 08, 2018 at 17:40 Discharge Diagnosis E Coli Bacteremia Patient Condition: Good Hx of Present Illness This is a 68-year-old female with a history of hypertension and type 2 diabetes who presented to ER complaining of fever/chills and right shoulder pain. Reported minimal cough and shortness of breath. Denied chest pain. Reported urinary symptoms. No diarrhea. Patient is more bothered by fever and chills. Patient was just discharged from here 2 weeks ago after she initially presented with orthopnea and PND. At that time she was ruled out for ACS and stress test was also negative. When presented to ER, patient was febrile with a temperature of 105. UA consistent with UTI. Chest x-ray suspicious for early pneumonia. Influenza negative Hospital Course After admission, blood cultures grew E. Coli sensitive to ceftriaxone. Per ID consult, 2 weeks of ceftriaxone is necessary. Source is unknown. The patient did not have signs or symptoms of pneumonia or UTI. She had a prolonged hospital course; she only had emergency medi-lotus and we needed to wait for approval for full-scope medi-lotus before a home health agency would take her. Most of hospital course she was asymptomatic, feeling well. Home Meds Active Scripts Aspirin (Aspirin) 81 Mg Chew, 81 MG PO DAILY for 30 Days, TAB.CHEW 2 Refills Prov:KARANDELMARATITO M. 06/14/15 Metformin* (Glucophage*) 500 Mg Tab, 500 MG PO WITH BREAKFAST, #30 TAB 2 Refills Prov:KARANVIRGIEO M. 06/14/15 Lisinopril* (Zestril*) 10 Mg Tab, 10 MG PO DAILY for 30 Days, TAB 2 Refills Prov:KARANDELMARGILBERTO M. 06/14/15 Reported Medications Acetaminophen* (Acetaminophen*) 500 MG Extra Strength Tablet, 500 MG PO Q4H PRN for PAIN AND OR ELEVATED TEMP, TAB 07/01/18 Follow-up Plan 1. Continue recieving daily IV antibiotics as prescribed. The last day is July 13. 2. Take all other medications as prescribed. 3. See your primary care doctor in 1-2 weeks Primary Care Provider Not On Staff Doctor Time spent on discharge: > 30 minutes Pending Labs Laboratory Tests Test 07/07/18 21:15 07/08/18 01:18 07/08/18 08:09 07/08/18 11:58 Bedside 182 138 131 180 Glucose mg/dL (70-220) mg/dL (70-220) mg/dL (70-220) mg/dL (70-220) Test 07/08/18 16:45 Bedside 121 Glucose mg/dL (70-220) ERICKA DALEY MD Jul 08, 2018 19:49
== END 2018-07-08 17:40 | disposition home health service (06) | DRG 871 ==
LOC: E/R 21:14 → TEL 22:54 → PP2 07-03 14:49
PROVIDERS: ADMIT Internal Medicine; ATTEND Internal Medicine
PROC: 02HV33Z Insertion of Infusion Device into Superior Vena Cava, Percutaneous Approach (ICD-10-PCS; principal; 2018-07-03)
DX: A41.51 Sepsis due to Escherichia coli [E. coli] (principal); J18.9 Pneumonia, unspecified organism; N39.0 Urinary tract infection, site not specified; I10 Essential (primary) hypertension; E11.9 Type 2 diabetes mellitus without complications; M25.511 Pain in right shoulder
CPT/HCPCS: 36415; 36569; 71045; 76937; 80048; 80053; 80202; 81001; 82962; 83036; 83605; 83735; 83880; 84100; 84484; 85025; 85610; 85730; 87086; 87400; 93005; 96365; 96368; 96375; 97161; J0360; J0692; J0696; J1200; J1650; J1815; J1885; J1956; J2543; J2920; J3370; J3475; J7030

== ENCOUNTER 2018-08-29 08:11 | Emergency (ER) | payer MEDICAID ==
[~2018-08-29] VITALS: Ht 152.4 cm; Wt 73.3 kg
[~2018-08-29 08:11] MED LIST changes: +ACET-141 PO
[2018-08-29 08:17] VITALS: BP 129/73; PULSE 70; RESP 18; Ht 152.4 cm; Wt 73.3 kg
[2018-08-29] MEDS ORDERED: NPH10OT RIGHT EAR (09:56)
--- NOTE | 2018-08-29 10:05 | ERD ---
ER Documentation Chief Complaint Chief Complaint right ear pain possible insect inside HPI 68-year-old female presenting with foreign body to the right ear. Patient feels that it is a cockroach and she feels it moving around. She denies any use of medications at home and has not attempted to remove it herself. History of hypertension. Prediabetic. NKDA. Surgical history denies. Social history denies ROS All systems reviewed and are negative except as per history of present illness. Medications Home Meds Active Scripts Neomycin/Polymyxin/Hydrocort* (Cortisporin* Otic) 10 Ml Susp, 4 DROP RIGHT EAR QID for 7 Days, EA Prov:SUKHJINDER BLANCO PA-C 08/29/18 Aspirin (Aspirin) 81 Mg Chew, 81 MG PO DAILY for 30 Days, TAB.CHEW 2 Refills Prov:BERONICA RUSSO 06/14/15 Metformin* (Glucophage*) 500 Mg Tab, 500 MG PO WITH BREAKFAST, #30 TAB 2 Refills Prov:BERONICA RUSSO. 06/14/15 Lisinopril* (Zestril*) 10 Mg Tab, 10 MG PO DAILY for 30 Days, TAB 2 Refills Prov:BERONICA RUSSO. 06/14/15 Reported Medications Acetaminophen* (Acetaminophen*) 500 MG Extra Strength Tablet, 500 MG PO Q4H PRN for PAIN AND OR ELEVATED TEMP, TAB 07/01/18 Allergies Allergies: Coded Allergies: levofloxacin (Verified Adverse Reaction, Intermediate, 07/03/18) Swelling under eyes PMhx/Soc Medical and Surgical Hx: pt denies Surgical Hx History of Surgery: No Anesthesia Reaction: No Hx Neurological Disorder: No Hx Respiratory Disorders: No Hx Cardiac Disorders: Yes (htn) Hx Psychiatric Problems: No Hx Miscellaneous Medical Probl: Yes (DM) Hx Alcohol Use: No Hx Substance Use: No Hx Tobacco Use: No FmHx Family History: No diabetes, No coronary disease, No other Physical Exam Vitals Vital Signs Date Temp Pulse Resp B/P (MAP) Pulse Ox O2 O2 Flow FiO2 Time Delivery Rate 08/29/18 97.7 70 18 129/73 97 08:17 (91) Physical Exam GENERAL: The patient is well-appearing, well-nourished, in no acute distress HEENT: Atraumatic. Conjunctivae are pink. Pupils equal, round, and reactive to light. There is no scleral icterus. Tympanic membranes clear bilaterally. Oropharynx clear. Foreign body noted to right external ear canal. NECK: C-spine is soft and supple. There is no meningismus. There is no cervical lymphadenopathy. CHEST: Clear to auscultation bilaterally. There are no rales, wheezes or rhonchi. HEART: Regular rate and rhythm. No murmurs, clicks, rubs or gallops. Procedures/MDM ER course: Ear lavage done and foreign body removed MDM: 68-year-old female presenting with foreign body to the right ear canal. I have low suspicion for iatrogenic injury. I have low suspicion for perforation. No retained foreign body. Patient is discharged with strict ER precautions and told to follow-up with primary care within 1 to 2 days for close evaluation. All questions answered at discharge Departure Diagnosis: Primary Impression: Foreign body Condition: Stable Patient Instructions: Foreign Object in the Ear or Nose Referrals: [facility] YOU HAVE RECEIVED A MEDICAL SCREENING EXAM AND THE RESULTS INDICATE THAT YOU DO NOT HAVE A CONDITION THAT REQUIRES URGENT TREATMENT IN THE EMERGENCY DEPARTMENT. FURTHER EVALUATION AND TREATMENT OF YOUR CONDITION CAN WAIT UNTIL YOU ARE SEEN IN YOUR DOCTORS OFFICE WITHIN THE NEXT 1-2 DAYS. IT IS YOUR RESPONSIBILITY TO MAKE AN APPOINTMENT FOR FOLOW-UP CARE. IF YOU HAVE A PRIMARY DOCTOR --you should call your primary doctor and schedule an appointment IF YOU DO NOT HAVE A PRIMARY DOCTOR YOU CAN CALL OUR PHYSICIAN REFERRAL HOTLINE AT IF YOU CAN NOT AFFORD TO SEE A PHYSICIAN YOU CAN CHOSE FROM THE FOLLOWING [facility] [id number] [facility]. [facility] [email or web address] [facility] [address] [facility] [facility] [address] [facility]. [facility] [address], [facility]. [facility]. [address] Additional Instructions: FOLLOW UP WITH YOUR PRIMARY CARE PHYSICIAN TOMORROW.Return to this facility if you are not improving as expected. SUKHJINDER BLANCO PA-C Aug 29, 2018 10:05
== END 2018-08-29 10:22 | disposition home or self-care (01) ==
LOC: FTE 08:11
DX: T16.1XXA Foreign body in right ear, initial encounter (principal); I10 Essential (primary) hypertension; E11.9 Type 2 diabetes mellitus without complications; X58.XXXA Exposure to other specified factors, initial encounter; Y92.9 Unspecified place or not applicable; Z79.84 Long term (current) use of oral hypoglycemic drugs; Z79.82 Long term (current) use of aspirin
CPT/HCPCS: 69209; Z7502

== ENCOUNTER 2018-12-03 10:23 | Emergency (ER) | payer OTHER ==
[~2018-12-03] VITALS: Ht 157.5 cm; Wt 74.5 kg
[~2018-12-03 10:23] MED LIST changes: +ACET500C5 PO; +CEPH-443 PO; +LACT1CAP57 PO; +NPH10OT RIGHT EAR
[2018-12-03 10:34] VITALS: Ht 157.5 cm; Wt 74.5 kg
[2018-12-03] MEDS ORDERED: IBUPROFEN 600 MG TAB PO ONE (11:00)
[2018-12-03 13:10] VITALS: BP 117/56; PULSE 66; RESP 20
== END 2018-12-03 12:53 | disposition home or self-care (01) ==
LOC: FTE 10:23
DX: N39.0 Urinary tract infection, site not specified (principal); I10 Essential (primary) hypertension; Z79.82 Long term (current) use of aspirin; Z79.84 Long term (current) use of oral hypoglycemic drugs
CPT/HCPCS: 71045; 81001; 87400; Z7502; Z7610